=== PATIENT | female | born 1950 | race Caucasian/White ===

== ENCOUNTER 2018-06-27 14:12 | Emergency (ER) | payer MEDICARE, OTHER ==
--- OUTSIDE RECORDS SUMMARY | 2018-06-27 14:48 | XMS REPORT ---
:1950 External Reference #:[id number] Author Organization [employer] Address [address] [place] [address] [place] [address] Phone [phone] Care Team Providers Name Role Phone Judd Hickey DC Care Team Information Linux Solaris Administrator Unavailable Nicolle Mccarty MD Primary Care Physician Unavailable Payers Type Date Identification Numbers Payment Provider Subscriber Medicare Primary Effective: Policy Number: Medicare Juliana Shepherd 2014 [id number] PayID: [id number] [address] [place] [address] Commercial Policy Number: [id number] [facility] Juliana Shepherd Group Number: [id number] [address] PayID: [id number] [place] [address] Medigap Part B Effective: 2014 Policy Number: BS Facets Jean Shepherd [id number] III Expires: 2018 PayID: [id number] [address] [address] [place] [address] Problems Date Description Provider Status Onset: 11/26/2010 Obstructive sleep apnea syndrome Estee Alvarenga DNP, RN, Active [employer] [employer] Onset: 03/23/2017 Localized, primary osteoarthritis Mirna Felix M.D. Active Family History Date Family Member(s) Problem(s) Comments General Cancer Social History Type Date Description Comments Lives With Occupation Retired ETOH Use Occasionally consumes alcohol Smoking Patient has never smoked Exercise Type/Frequency Exercises regularly Allergies, Adverse Reactions, Alerts Date Description Reaction Status Severity Comments 08/14/2014 NKDA active Medications Medication Date Status Form Strength Qnty SIG Indications Ordering Provider Metoprolol / Active 50mg one by Unknown Succinate ER 0000 mouth daily Chlorthalidone / Active 25mg one by Unknown 0000 mouth daily Vesicare / Active 10mg one by Unknown 0000 mouth daily Atorvastatin / Active 20mg one by Unknown Calcium 0000 mouth daily Losartan / Active 100mg one by Unknown Potassium 0000 mouth daily Nasonex / Active 50mcg as needed Unknown 0000 Proctosol HC / Active 2.5% as needed Unknown 0000 [place] 3 500 / Active Capsules 500mg Unknown 0000 Vitamin D / Active Tablets 1000Unit by mouth Unknown 0000 everyday Biotin / Active take one Unknown 0000 capsule/ta blet daily by mouth Potassium / Active Tablets 75mg 1 by mouth Unknown 0000 every day Medications Administered in Office Medication Date Status Form Strength Qnty SIG Indications Ordering Provider Depomedrol Administered Injection Mirna 40MG 017 Doreen Felix Technetium TC Administered Injection Ica Nuclear 99M 017 Schedule Tetrofosmin, Per Unit Dose Up To 40 Millicuries Inj, Administered Injection Terrence Stearns Regadenoson, 017 Puente, 0.1 MG M.D., FACC, FASNC Technetium TC Administered Injection Terrence Stearns 99M 017 Puente, Tetrofosmin, MMarciaDMarcia, FACC, Per Unit Dose FASNC Up To 40 Millicuries Vital Signs Date Vital Result Comment 06/27/2018 Height 66 inches 5'6" Weight 252.00 lb Heart Rate 60 /min BP Systolic Sitting 138 mmHg BP Diastolic Sitting 82 mmHg Respiratory Rate 14 /min O2 % BldC Oximetry 97 % BMI (Body Mass Index) 40.7 kg/m2 05/14/2017 Height 66 inches 5'6" Weight 256.00 lb Heart Rate 70 /min BP Systolic Sitting 138 mmHg BP Diastolic Sitting 74 mmHg Respiratory Rate 28 /min O2 % BldC Oximetry 96 % room air BMI (Body Mass Index) 41.3 kg/m2 04/09/2017 Height 66 inches 5'6" Weight 255.00 lb Heart Rate 76 /min BP Systolic 154 mmHg BP Diastolic 71 mmHg Pain Level 2 BMI (Body Mass Index) 41.2 kg/m2 03/23/2017 Height 66 inches 5'6" Weight 255.00 lb Heart Rate 90 /min BP Systolic 170 mmHg BP Diastolic 80 mmHg Body Temperature 97.3 F BMI (Body Mass Index) 41.2 kg/m2 05/12/2016 Height 66 inches 5'6" Weight 245.00 lb Heart Rate 82 /min BP Systolic 148 mmHg BP Diastolic 70 mmHg Respiratory Rate 14 /min O2 % BldC Oximetry 96 % BMI (Body Mass Index) 39.5 kg/m2 10/06/2014 Height 66 inches 5'6" Weight 260.00 lb Heart Rate 77 /min BP Systolic Sitting 140 mmHg BP Diastolic Sitting 66 mmHg Respiratory Rate 18 /min O2 % BldC Oximetry 97 % BMI (Body Mass Index) 42.0 kg/m2 08/14/2014 Height 66 inches 5'6" Weight 252.00 lb Heart Rate 78 /min BP Systolic 164 mmHg BP Diastolic 98 mmHg BMI (Body Mass Index) 40.7 kg/m2 Results Test Date Test Result H/L Range Note Laboratory test finding 07/26/2017 Cytology Non-Licensed Weigher SEE RESULT BELOW 1 1 SEE RESULT BELOW Name: JULIANA SHEPHERD : [address]: Tank Smalls MD Acct: [id number] Unit: [id number] AGE: 67 Location: THYROID Re07/26/17 SEX: F Status: REG REF SPEC: [id number] JACKIE: 07/26/17-[address]: Tank Smalls MD REQ: [id number] RECD: 07/26/17 STATUS: NNAMDI MCGILL DR: Nicolle Nichols MD _ ORDERED: FNA-IMG GUID BX, CYTO ADEQ-1ST P FINAL DIAGNOSIS Thyroid, left lower, Ultrasound guided, fine needle aspiration: --Benign thyroid nodule- involutional type ([place] Class II). The specimen demonstrates moderate watery proteinaceous fluid, a moderate amount of benign appearing follicular epithelium arranged in uniform sheets, medium sized follicles and only occasional small groups. Abundant pigmented and non-pigmented macrophages are seen in the background. No features of papillary carcinoma are seen. In this clinical setting the risk of malignancy is less than 3%. Clinical management of this thyroid nodule should be based on clinical and radiographic features as well as the above findings. THYROID LEFT - US GUIDED FINE NEEDLE ASPIRATION LEFT LOWER THYROID NODULE CLINICAL HISTORY Left lower thyroid nodule 5.3 x 3.9 x 4.4cm IMMEDIATE INTERPRETATION Pass 1-adequate CONTINUED ON NEXT PAGE * ML=Testing performed at Main Lab DEPARTMENT OF PATHOLOGY, [address] [place] [address] Dash De Jesus M.D. Director [facility] # [id number] RUN DATE: 07/26/17 [facility] LAB LIVE PAGE 2 Patient: JULIANA SHEPHERD [id number] (Continued) GROSS DESCRIPTION (Continued) GROSS DESCRIPTION 2- alcohol fixed slide(s) 1- passes Signed (signature on file) Dash De Jesus MD 1106 END OF REPORT * ML=Testing performed at Main Lab DEPARTMENT OF PATHOLOGY, [address] [place] [address] Dash De Jesus M.D. Director [facility] # [id number] Procedures Date CPT Code Description Status 04/09/2017 27805 Inject/Drain Joint/Bursa Major W/O US Completed 04/06/2017 39469 Stress Test Completed 04/06/2017 96415 Myocardial Perfusion Imaging Tomographic (Spect) Completed Multiple Studies Encounters Type Date Location Provider CPT E/M Dx Office Visit 05/14/2017 [facility]ology [facility] Estee Alvarenga, 66124 G47.33 9:30a [facility] NAV[facility]O RN[facility] 03/23/2017 [facility] Mirna Felix M.D. 21413 M25.462 10:00a C.M.A. M25.562 M17.12 Office Visit 05/12/2016 11:15a [facility]ology [facility] Sleep Estee Alvarenga, 14455 G47.33 [facility] YOEL NAVARRO, [facility] Office Visit 10/06/2014 3:00p Pulmonology And Sleep Estee Alvarenga, 48487 327.23 [facility] YOEL NAVARRO, [facility] 08/14/2014 10:00a [facility] [place] [facility] 79121 715.36 C.M.A. MRavin Plan of Care 06/27/2018 - Estee Alvarenga DNP, RN, [facility]-BCG47.33 Obstructive sleep apnea ( adult) (pediatric)New Orders:Sleep-HomecareComments:Sleep Apnea - 9/23/11 NPSG AHI 76.7, jimenez oxygen 74%On CPAP 10 cm AHI 0.3/hourFollow up:1 yearRecommendations:Continue PAP device, Benefitting and compliant with treatment. Cleaning Wipe off mask daily (baby wipe-no scent, or warm water) Clean mask, tubing, filter, and water chamber weekly in mild no scent dish soap and water. Hang to dry. So-Clean is an option (not covered by insurance) If you have any sleepiness while driving you MUST avoid operating a vehicle or machinery. If you have difficulty with your equipment, or need to replace your mask or hoses, please contact your homecare agency. A weight change of 20 pounds or more may have an effect on your equipment; if you are experiencing problems please call for an appointment. If you have any further questions, please call the [facility] at [phone].r00.4 Other abnormalities of heart beatRecommendations:New finding, irregular beat every 6-7 beats. Agree to be seen in Emergency Room for further evaluation and lab work if needed. Educatioon about causes of irregular heart beat: dehydration, caffeine, electrolyte imbalances, and other problems that can be detected with lab work.
--- NOTE | 2018-06-27 15:24 | ED ---
Palpitations / Dysrhythmia - HPI Summary HPI Summary: This is cecille Nelson documenting for attending Ollie Parker MD. This patient is a 68 year old F presenting to [facility] with a chief complaint of irregular heart rhythm since earlier today. Patient denies chest pain, palpitation, SOB or nausea, vomiting, and diarrhea. Patient was at a routine appointment to evaluate for a CPAP when the irregular heart rhythm was found. Her PCP is Dr. Nicolle Mccarty MD. - History of Current Complaint Chief Complaint: EDDysrhythmPalp Time Seen by Provider: 06/27/18 14:42 Hx Obtained From: Patient Onset/Duration: Lasting Hours - Since earlier today Character: Irregular - Allergy/Home Medications Allergies/Adverse Reactions: Allergies Allergy/AdvReac Type Severity Reaction Status Date / Time No Known Allergies Allergy Verified 06/04/15 08:25 Home Medications: Home Medications Ascorbic Acid TAB* [Vitamin C TAB*] 1,000 mg PO DAILY 06/27/18 [History Confirmed 06/27/18] Biotin 5 mg PO DAILY 06/27/18 [History Confirmed 06/27/18] Chlorthalidone TAB* [Hygroton TAB*] 25 mg PO DAILY 06/27/18 [History Confirmed 06/27/18] Cholecalciferol TAB* [Vitamin D TAB*] 1,000 unit PO DAILY 06/27/18 [History Confirmed 06/27/18] Cinnamon Bark [Cinnamon] 900 mg PO DAILY 06/27/18 [History Confirmed 06/27/18] Fish Oil/Borage/Flax/Om3,6,9 1 [[place] 3-6-9 Complex Softgel] 750 mg PO DAILY 01/13 [History Confirmed 06/27/18] Garlic [Odor Free Garlic] 1 tab PO DAILY 06/27/18 [History Confirmed 06/27/18] Hydrocortisone [Proctozone-Hc] 2.5 % TOPICAL DAILY 06/27/18 [History Confirmed 06/27/18] Losartan TAB* [Cozaar TAB*] 100 mg PO DAILY 06/27/18 [History Confirmed 06/27/18 ] Metoprolol Succinate XL TAB* [Toprol XL TAB*] 50 mg PO DAILY 06/27/18 [History Confirmed 06/27/18] Mometasone NASAL (NF) [Nasonex (NF)] 1 spray BOTH NARES DAILY 06/27/18 [History Confirmed 06/27/18] Multivitamins/Minerals TAB* [Theragran/minerals TAB*] 1 tab PO DAILY 06/27/18 [ History Confirmed 06/27/18] Potassium 99 mg PO DAILY 06/27/18 [History Confirmed 06/27/18] Solifenacin(NF) [Vesicare(NF)] 10 mg PO DAILY 06/27/18 [History Confirmed ] Tumeric 800 mg PO DAILY 06/27/18 [History Confirmed 06/27/18] PMH/Surg Hx/FS Hx/Imm Hx Endocrine/Hematology History: Reports: Hx Thyroid Disease - PARTIAL THYROIDECTOMY, 1976 Denies: Hx Diabetes, Hx Anemia Cardiovascular History: Reports: Hx Hypertension - WELL CONTROLLED Denies: Other Cardiovascular Problems/Disorders Respiratory History: Reports: Hx Sleep Apnea GI History: Denies: Hx Jaundice Musculoskeletal History: Reports: Hx Arthritis - bilateral knees Denies: Other Musculoskeletal History Sensory History: Reports: Hx Contacts or Glasses - GLASSES Denies: Hx Hearing Aid Opthamlomology History: Reports: Hx Contacts or Glasses - GLASSES - Cancer History Hx Chemotherapy: No Hx Radiation Therapy: No - Surgical History Surgery Procedure, Year, and Place: PARTIAL THYROIDECTOMY 1977 [facility]. 2008, 2014 [facility]. 2008, 2013 D[facility] Hx Anesthesia Reactions: No Infectious Disease History: No Infectious Disease History: Denies: Traveled Outside the [place] in Last 30 Days - Family History Known Family History: Positive: Hypertension Negative: Cardiac Disease, Diabetes - Social History Occupation: Retired Alcohol Use: Rare Alcohol Amount: 1-2 PER MONTH Substance Use Type: Reports: None Smoking Status (MU): Never Smoked Tobacco Have You Smoked in the Last Year: No Review of Systems Negative: Fever, Chills Negative: Erythema Negative: Sore Throat Positive: Other - Irregular rhythm. Negative: Palpitations, Chest Pain Negative: Shortness Of Breath, Cough Negative: Abdominal Pain, Vomiting, Diarrhea, Nausea Negative: dysuria, hematuria Negative: Rash Neurological: Other - Denies dizziness All Other Systems Reviewed And Are Negative: Yes Physical Exam - Summary Physical Exam Summary: General: Well appearing, no distress Cardiovascular: Skin is well perfused Pulmonary: No respiratory distress, no tachypnea Abdomen: Non-distended Skin: Warm, pink, dry Psych: Normal affect Neuro: A&Ox3 Triage Information Reviewed: Yes Vital Signs On Initial Exam: Initial Vitals Temp Pulse Resp BP Pulse Ox 97.3 F 83 20 166/78 97 06/27/18 14:23 06/27/18 14:23 06/27/18 14:23 06/27/18 14:23 06/27/18 14:23 Vital Signs Reviewed: Yes Diagnostics - Vital Signs Vital Signs Temp Pulse Resp BP Pulse Ox 06/27/18 14:59 95 06/27/18 14:54 80 28 166/93 94 06/27/18 14:24 71 95 06/27/18 14:23 97.3 F 83 20 166/78 97 - Laboratory Result Diagrams: 06/27/18 15:24 06/27/18 15:24 Lab Statement: Any lab studies that have been ordered have been reviewed, and results considered in the medical decision making process. - Radiology Chest X-Ray Radiology Interpretation Completed By: Radiologist - LIONINFLATION. NO ACTIVE CARDIOPULMONARY DISEASE. Physician has reviewed this report. - EKG No standard instances Cardiac Rate: NL - 80 BPM EKG Rhythm: Sinus Rhythm EKG Interpretation: no STEMI Course/Dx - Diagnoses Provider Diagnoses: PVC (premature ventricular contraction) Discharge - Sign-Out/Discharge Documenting (check all that apply): Patient Departure - DC - Discharge Plan Condition: Stable Disposition: HOME Patient Education Materials: Premature Ventricular Contractions (ED) Referrals: Nicolle Mccarty MD [Primary Care Provider] - (Follow up in 2-3 days) Additional Instructions: Follow up with your primary care physician in 2-3 days. RETURN TO THE EMERGENCY DEPARTMENT FOR CHANGING OR WORSENING SYMPTOMS.
[2018-06-27 15:32] LABS: ABS Basophils 0.1 10^3/ul (0-0.2); ABS Eosinophils 0.2 10^3/ul (0-0.6); ABS Lymphocytes 2.3 10^3/ul (1.0-4.8); ABS Monocytes 0.7 10^3/ul (0-0.8); ABS Neutrophils 5.4 10^3/ul (1.5-7.7); ABS Nucleated RBC 0 10^3/ul; Eosinophil % 1.8 % (0-6); Hematocrit 42 % (35-47); Hemoglobin 14.3 g/dl (12.0-16.0); Lymphocyte % 26.9 % (25-47); Mean Corpuscular HGB Conc 34 g/dl (31-36); Mean Corpuscular Hemoglobin 28 pg (27-31); Mean Corpuscular Volume 81 fL (80-97); Nucleated Red Blood Cells % 0; Platelet Count 197 10^3/ul (150-450); Red Blood Count 5.19 10^6/ul (4.00-5.40); Red Cell Distribution Width 15 % (10.5-15); White Blood Count 8.6 10^3/ul (3.5-10.8)
[2018-06-27 15:51] LABS: EGFR Non-African American 105.2 (>60)
--- NOTE | 2018-06-27 15:51 | RAD ---
HISTORY: ARRHYTHMIA COMPARISONS: April 15, 2012 VIEWS: 1: frontal portable view of the chest at 3:09 PM FINDINGS: LINES AND TUBES: None. CARDIOMEDIASTINAL SILHOUETTE: The cardiomediastinal silhouette is normal for portable technique. PLEURA: The costophrenic angles are sharp. No pleural abnormalities are noted. LUNG PARENCHYMA: There is hyperinflation. ABDOMEN: The upper abdomen is clear. There is no subphrenic gas. BONES AND SOFT TISSUES: No bone or soft tissue abnormalities are noted. IMPRESSION: HYPERINFLATION. NO ACTIVE CARDIOPULMONARY DISEASE.
[2018-06-27 16:19] VITALS: BP 163/84
== END 2018-06-27 16:18 | disposition home or self-care (01) ==
LOC: ED 14:12
DX: I49.3 Ventricular premature depolarization (principal); I10 Essential (primary) hypertension; E07.9 Disorder of thyroid, unspecified; Z79.899 Other long term (current) drug therapy
CPT/HCPCS: 36415; 71045; 80053; 83605; 84439; 84443; 84484; 85025; 93005; 99283

== ENCOUNTER 2018-10-31 07:13 | Day surgery (SDC) | payer MEDICARE, OTHER ==
[~2018-10-31 07:13] MED LIST: Buffered Lidocaine 0.9% SYRIN* 5 ML/SYR SYRINGE INTRADERM ONE
[2018-10-31] MEDS ORDERED: Lidocaine 2% PF * 5 ML VIAL ONE ×2 (08:00→08:49)
[2018-10-31] MEDS ORDERED: Propofol* 10 MG/ML 20 ML BTL ONE (08:00)
[2018-10-31] MEDS ORDERED: fentaNYL* 50 MCG/ML 2 ML VIAL (100 MCG VIAL) ONE (08:01)
[2018-10-31] MEDS ORDERED: Midazolam* 1 MG/ML 2 ML VIAL (2 MG) ONE (08:01)
[2018-10-31] MEDS ORDERED: Chloroprocaine 2%* 20 ML VIAL ONE (08:49)
[2018-10-31] MEDS ORDERED: Acetaminophen TAB* 325 MG PO PRN (10:04)
[2018-10-31] MEDS ORDERED: oxyCODONE TAB* 5 MG TAB PO PRN (10:04)
[2018-10-31] MEDS ORDERED: Naloxone* 0.4 MG/ML 1 ML VIAL IV PRN (10:04)
[2018-10-31] MEDS ORDERED: Ketorolac INJ* 30 MG/ML 1 ML VIAL IV PRN (10:04)
[2018-10-31] MEDS ORDERED: Ondansetron INJ* 2 MG/ML VIAL IV PRN (10:04)
[2018-10-31] MEDS ORDERED: fentaNYL* 50 MCG/ML 2 ML VIAL (100 MCG VIAL) IV PRN (10:04)
[2018-10-31] MEDS ORDERED: Ketorolac INJ* 30 MG/ML 1 ML VIAL ONE (12:20)
[2018-10-31] MEDS ORDERED: oxyCODONE TAB* 5 MG TAB ONE (12:59)
[2018-10-31 17:03] VITALS: BP 121/78
--- NOTE | 2018-10-31 23:21 | OP ---
DATE OF OPERATION: 10/31/18 - [facility] DATE OF : 48 SURGEON: Isaac Smith MD ANESTHESIA: Spinal. PRE-OP DIAGNOSIS: Postmenopausal bleeding. POST-OP DIAGNOSIS: Endometrial polyp. OPERATIVE PROCEDURE: D and C hysteroscopy and MyoSure. COMPLICATIONS: None. ESTIMATED BLOOD LOSS: Less than 50 cc. DEFICIT: 300 cc. FINDINGS: On exam under anesthesia, uterus was mid position. Cervix, vagina, and vulva appeared normal. On hysteroscopy, there was a large endometrial polyp taking up the majority of the uterine cavity. The rest of the endometrial cavity appeared normal. DESCRIPTION OF PROCEDURE: The patient identified, procedure identified as a D and C, hysteroscopy, MyoSure. The patient was taken to the operating room, prepped and draped in the usual fashion in dorsal lithotomy position under spinal anesthesia. Two single-tooth tenaculums were placed in the anterior lip of the cervix. Cervix was dilated up to a #26 Tommie dilator. First the diagnostic scope could only be placed and the polyp was visualized. With further dilation, the MyoSure scope was placed and using the MyoSure, the polyp was excised. After the procedure, a sharp curette was inserted, and sharp curettage was performed; then the MyoSure was used to take a little bit off the endometrium. At the end of the procedure, all instruments were removed from the vagina and good hemostasis was verified. The patient returned to the recovery room in stable condition. All sponge and instrument counts were correct. [id number]/[facility] #: [id number] MTDD
== END 2018-10-31 17:04 | disposition home or self-care (01) ==
LOC: OR 07:13
PROVIDERS: ATTEND Obstetrics & Gynecology
DX: N85.01 Benign endometrial hyperplasia (principal)
CPT/HCPCS: 88305; 88342; A9270-GY; J1885; J2250; J2400; J2704; J3010

== ENCOUNTER 2019-06-10 08:14 | Inpatient (IN) | payer MEDICARE, OTHER ==
--- NOTE | 2019-06-03 09:27 | HP ---
AMENDED REPORT NOW INCLUDES DESIGNATED COSIGNER HISTORY AND PHYSICAL: DATE OF ADMISSION/SURGERY: 06/10/19 DATE OF OFFICE VISIT: 06/02/19 SURGEON: Mirna Felix MD * (DICTATED BY ANTHONY JAMES) PROCEDURE: Left total knee arthroplasty. CHIEF COMPLAINT: Left knee pain. HISTORY OF PRESENT ILLNESS: Ms. Shepherd is a 68-year-old female with end-stage osteoarthritis of the left knee. She has failed conservative treatment and elected to proceed with the left total knee arthroplasty. PAST MEDICAL HISTORY: Hypertension, high cholesterol, sleep apnea, hypothyroidism. PAST SURGICAL HISTORY: Vein stripping, hysterectomy, partial thyroidectomy, D and C, and sclerotherapy. CURRENT MEDICATIONS: 1. Tylenol as needed. 2. Amlodipine 10 mg daily. 3. Atorvastatin 20 mg daily. 4. Biotin 5 mg daily. 5. Chlorthalidone 25 mg daily. 6. Loratadine 10 mg daily. 7. Losartan 100 mg daily. 8. Metronidazole topical cream as needed. 9. Mometasone nasal spray at night. 10. Multivitamin daily. 11. Potassium daily. 12. Proctosol as needed. 13. Senna as needed. 14. Turmeric. 15. VESIcare. 16. CPAP machine. ALLERGIES: No known drug allergies. FAMILY HISTORY: Cancer and coronary artery disease. SOCIAL HISTORY: She is a 68-year-old female. She lives alone. She does not smoke or use drugs. She uses alcohol rarely. REVIEW OF SYSTEMS: A complete 14-point review of systems was reviewed with the patient. It was positive for hypothyroidism. She denies history of DVT, PE, hepatitis, HIV, or anesthesia problems. PHYSICAL EXAMINATION GENERAL: She is well developed, well nourished, in no acute distress. VITAL SIGNS: She stands 5 feet 6 inches tall, weighs 259 pounds. Her blood pressure is 118/64, heart rate is 80. HEENT: Normocephalic, atraumatic. NECK: Supple. No palpable lymph nodes. PULMONARY: Lungs are clear to auscultation bilaterally. CARDIO: Regular rate and rhythm. Strong S1, S2. ABDOMEN: Soft, nontender, and nondistended. NEUROLOGICAL: She is alert and oriented x3. MUSCULOSKELETAL: Left lower extremity: The skin is intact. There are no open wounds or abrasions. There is a moderate to large effusion of the left knee. There is a varus deformity. Range of motion is 10 to 120 degrees of flexion. Positive Apley's. Positive Sedrick's. Significant patellofemoral crepitus with range of motion. She is able to dorsiflex and plantar flex and has a 2+ dorsalis pedis pulse. ASSESSMENT AND PLAN: Ms. Shepherd is a 68-year-old female with end-stage osteoarthritis of the left knee. She has failed conservative treatment and elected to proceed with a left total knee arthroplasty. The surgery is scheduled for 06/10/[address] Felix discussed the risks and benefits of the surgery at today's visit and all of her questions were answered. She will follow up with Dr. Felix 2 weeks after the surgery. ANTHONY JAMES [id number]/[facility] #: [id number] MY
[~2019-06-10 08:14] MED LIST changes: +Acetaminophen TAB* 325 MG PO ONE; -Buffered Lidocaine 0.9% SYRIN* 5 ML/SYR SYRINGE INTRADERM ONE; +Buffered Lidocaine 1% SYRIN* 1 ML/SYRINGE INTRADERM ONE; +Dexamethasone TAB* 4 MG PO ONE; +DiMENhydriNATE IV* 50 MG/ML VIAL IV PUSH PRN; +Famotidine IV* 10 MG/ML 2 ML (20 mg) IV ONE; +Gabapentin CAP(*) 300 MG PO ONE; +HYDROmorphone INJ1* 1 MG/ML SYRINGE IV PRN; +Lactated Ringers 1000 ML Bag* 1,000 ML IV SCH; +Naloxone* 0.4 MG/ML 1 ML VIAL IV PRN; +Ondansetron ODT TAB* 4 MG PO ONE; +PROCHLORPERAZINE INJ 5 MG/ML 2 ML VIAL IV PRN; +Scopolamine 1.5 mg* PATCH TRANSDERM PRN; +Tranexamic Acid 1,000 MG in NS 0.9% 50 ML* (outpatient use) IV SCH; +celeCOXIB CAP* 200 MG PO ONE; +fentaNYL* 50 MCG/ML 2 ML VIAL (100 MCG VIAL) IV PRN; +oxyCODONE TAB* 5 MG TAB PO PRN
--- OUTSIDE RECORDS SUMMARY | 2019-06-10 08:18 | XMS REPORT | Continuity of Care Document ---
:1950 External Reference #:[id number] Author Name Rosalie Spencer Care Team Providers Name Role Phone Nicolle Mccarty MD Primary Care Physician Unavailable Payers Date Identification Numbers Payment Provider Subscriber Effective: 2014 Policy Number: [id number] Medicare Juliana Ivey PayID: [id number] [address] [place] [address] Policy Number: [id number] [facility] Juliana Ivey Group Number: [id number] [address] PayID: [id number] [place] [address] Effective: 2014 Policy Number: [id number] [employer] Jean Wharton Joao III Expires: 2018 PayID: [id number] [address] [address] [place] [address] Problems Active Problems Provider Date Obstructive sleep apnea syndrome Estee Alvarenga DNP, RN, METALLURGICAL OR MATERIALS TECHNICIAN-BC Onset: 11/2010 Localized, primary osteoarthritis Mirna Felix M.D. Onset: 03/23/2017 Heart sounds abnormal Estee Alvarenga DNP, RN, METALLURGICAL OR MATERIALS TECHNICIAN-BC Onset: 06/27/2018 Family History Date Family Member(s) Observation Comments General Cancer General Hypertension Onset: (age Father Lung Cancer HEAVY SMOKER 72 Years) ASTHMA ALLERGIES ECZEMA Mother Hypertension CAD MOTHER AGE 93 CHF Onset: (age Mother Congestive Heart Failure (CHF) 93 Years) Onset: (age Mother Thyroid Disease THYROID CANCER 84 Years) Mother Hypercholesterolemia HYPERLIPIDEMIA Siblings 1 Sister - congenital heart defect hole in heart Social History Type Date Description Comments Sex Unknown Marital Status Lives With Alone Occupation Retired ETOH Use Occasionally consumes 1 glass of good red alcohol wine Tobacco Use Start: Unknown Patient has never smoked Recreational Drug Use Denies Drug Use Smoking Status Reviewed: 06/02/19 Patient has never smoked Exercise Type/Frequency Exercises regularly physical therapy desk stationary bike goes to [employer] Allergies, Adverse Reactions, Alerts Description No Known Drug Allergies Medications Active Medications SIG Qnty Indications Ordering Date Provider Amlodipine Besylate 1 by mouth every 90tabs I10 Sergio Lyon, 2018 10mg day DO FACC Tablets Multivital Unknown Tumeric 99 mg 1 tab po Unknown qd Loratadine once a day for Unknown 10mg Capsules allergies as needed Acetaminophen 2 every 6 hours Unknown 500mg as needed Tablets Mometasone Furoate spray two sprays Unknown in each nostril 50mcg/Act Suspension twice daily Metrocream apply twice a day Unknown 0.75% Cream - thin film as needed Senna S take 2 t d at hs Unknown 8.6-50mg Tablets Cpap for use while Unknown Device sleeping 10 cm Atorvastatin Calcium Take 1 Tablet By Unknown 20mg Mouth Every Day Tablets Potassium 1 by mouth every Unknown 75mg Tablets day Biotin take one Unknown 5mg Capsules capsule/tablet daily at lunch Proctosol HC as needed Unknown 2.5% Losartan Potassium one by mouth Unknown 100mg daily Vesicare one by mouth Unknown 10mg daily Chlorthalidone one by mouth Unknown 25mg daily History Medications Metoprolol Succinate 1 by mouth every day 7tabs Sergio Young 05/21/2019 - ER Camron DO FACC 05/28/2019 25mg Tablets ER 24HR Amlodipine Besylate 1 by mouth every day 30tabs I10 Sergio Young 05/21/2019 - 5mg Camron DO FACC 05/28/2019 Tablets Cephalexin 1 tablet every 8 30caps Mirna Felix, 11/01/2018 - 500mg hours x 10 days M.D. 05/15/2019 Capsules Metoprolol Succinate one by mouth daily Unknown - ER 05/21/2019 50mg Atorvastatin Calcium one by mouth daily Unknown - 05/15/2019 20mg Nasonex as needed Unknown - 50mcg 05/15/2019 [place] 3 500 i Unknown - 500mg 05/15/2019 Capsules Vitamin D by mouth everyday Unknown - 1000Unit 05/20/2019 Tablets Ec-81 Aspirin take 1 t po d last Unknown - 81mg took in dec because 05/27/2019 Tablets of hysterectomy never told to resume Vitamin K tk 3 t d Unknown - (Phytonadione) 05/15/2019 100mcg Tablets Medications Administered in Office Medication SIG Qnty Indications Ordering Provider Date Technetium TC 99M Ica Nuclear Schedule 05/26/2019 Tetrofosmin, Per Unit Dose Up To 40 Millicuries Injection Inj, Regadenoson, 0.1 MG Sergio Lyon, DO FAC 05/22/2019 Injection Technetium TC 99M Sergio Lyon, DO FACC 05/22/2019 Tetrofosmin, Per Unit Dose Up To 40 Millicuries Injection Depomedrol 40MG Mirna Felix M.D. 11/01/2018 Injection Depomedrol 40MG Mirna Felix M.D. 04/09/2017 Injection Technetium TC 99M Ica Nuclear Schedule 04/09/2017 Tetrofosmin, Per Unit Dose Up To 40 Millicuries Injection Inj, Regadenoson, 0.1 MG Terrence Puente M.D., 04/06/2017 Injection MELBA DUNN Technetium TC 99M Terrence Puente M.D., 04/06/2017 Tetrofosmin, Per Unit Dose MELBA DUNN Up To 40 Millicuries Injection Vital Signs Date Vital Result Comment 06/02/2019 9:39am Height 66 inches 5'6" Weight 259.00 lb Heart Rate 80 /min BP Systolic 118 mmHg BP Diastolic 64 mmHg BMI (Body Mass Index) 41.8 kg/m2 05/28/2019 7:47am Height 66 inches 5'6" Weight 258.00 lb with sandals Heart Rate 81 /min BP Systolic Sitting 150 mmHg lue large cuff BP Diastolic Sitting 74 mmHg lue large cuff BP Systolic Standing 152 mmHg lue large cuff BP Diastolic Standing 76 mmHg lue large cuff Respiratory Rate 14 /min BMI (Body Mass Index) 41.6 kg/m2 Ejection Fraction 60-65% echo. 05/27/19 05/21/2019 8:24am Height 66 inches 5'6" Weight 257.00 lb CLothes/shoes Heart Rate 82 /min Radial BP Systolic Sitting 162 mmHg Rue Lg cuff BP Diastolic Sitting 90 mmHg Rue Lg cuff BP Systolic Standing 158 mmHg Lue Lg cuff BP Diastolic Standing 90 mmHg Lue Lg cuff BMI (Body Mass Index) 41.5 kg/m2 02/19/2019 10:11am Height 66 inches 5'6" Weight 260.00 lb Heart Rate 81 /min O2 % BldC Oximetry 97 % BMI (Body Mass Index) 42.0 kg/m2 11/01/2018 2:28pm Height 66 inches 5'6" Weight 252.00 lb BP Systolic 126 mmHg BP Diastolic 71 mmHg Respiratory Rate 16 /min Pain Level 2 BMI (Body Mass Index) 40.7 kg/m2 06/27/2018 1:09pm Height 66 inches 5'6" Weight 252.00 lb Heart Rate 60 /min BP Systolic Sitting 138 mmHg BP Diastolic Sitting 82 mmHg Respiratory Rate 14 /min O2 % BldC Oximetry 97 % BMI (Body Mass Index) 40.7 kg/m2 05/14/2017 9:44am Height 66 inches 5'6" Weight 256.00 lb Heart Rate 70 /min BP Systolic Sitting 138 mmHg BP Diastolic Sitting 74 mmHg Respiratory Rate 28 /min O2 % BldC Oximetry 96 % room air BMI (Body Mass Index) 41.3 kg/m2 04/09/2017 10:42am Height 66 inches 5'6" Weight 255.00 lb Heart Rate 76 /min BP Systolic 154 mmHg BP Diastolic 71 mmHg Pain Level 2 BMI (Body Mass Index) 41.2 kg/m2 03/23/2017 10:15am Height 66 inches 5'6" Weight 255.00 lb Heart Rate 90 /min BP Systolic 170 mmHg BP Diastolic 80 mmHg Body Temperature 97.3 F BMI (Body Mass Index) 41.2 kg/m2 05/12/2016 11:38am Height 66 inches 5'6" Weight 245.00 lb Heart Rate 82 /min BP Systolic 148 mmHg BP Diastolic 70 mmHg Respiratory Rate 14 /min O2 % BldC Oximetry 96 % BMI (Body Mass Index) 39.5 kg/m2 10/06/2014 3:13pm Height 66 inches 5'6" Weight 260.00 lb Heart Rate 77 /min BP Systolic Sitting 140 mmHg BP Diastolic Sitting 66 mmHg Respiratory Rate 18 /min O2 % BldC Oximetry 97 % BMI (Body Mass Index) 42.0 kg/m2 08/14/2014 10:38am Height 66 inches 5'6" Weight 252.00 lb Heart Rate 78 /min BP Systolic 164 mmHg BP Diastolic 98 mmHg BMI (Body Mass Index) 40.7 kg/m2 Results Test Date Facility Test Result H/L Range Note Laboratory test 05/27/2019 [facility] Potassium TNP mmol/L 3.5-5.[address] [place] [address] [phone] Magnesium TNP mg/dL 1.9-2.7 2 Basic Metabolic Panel 05/27/2019 [facility] Sodium 137 mmol/L N 135-[address] [place] [address] [phone] Chloride 101 mmol/L N 101-111 Co2 Carbon Dioxide 29 mmol/L N 22-32 Glucose 119 mg/dL High 70-100 3 Blood Urea Nitrogen 13 mg/dL N 6-24 4 Creatinine 0.39 mg/dL Low 0.51-0.95 5 BUN/Creatinine Ratio 33.3 High 8-20 Calcium 9.9 mg/dL N 8.6-10.3 6 Egfr Non- 163.0 >60 Egfr 197.2 >60 7 Potassium TNP mmol/L 3.5-5.0 8 Anion Gap 7 mmol/L N 2-11 Laboratory test 05/27/2019 [facility] Magnesium TNP mg/dL 1.9 -2.[address] [place] [address] [phone] B-Type Natriuretic Peptide BNP 16 pg/mL <=100 Laboratory test 05/21/2019 [facility] B-Type Natriuretic < pending> finding [address] [place] [address] [phone] Potassium <pending> Magnesium <pending> Laboratory test 07/26/2017 [facility] Cytology SEE RESULT [address] [place] [address] [phone] 1 Specimen Hemolyzed. Result may not be valid. Unable to report test result due to hemolysis. 2 Unable to report test result due to hemolysis. 3 Specimen hemolyzed. Result may not be valid. 4 Specimen hemolyzed. Result may not be valid. 5 Specimen hemolyzed. Result may not be valid. 6 Specimen hemolyzed. Result may not be valid. 7 Because ethnic data is not always readily available, this report includes an eGFR for both -Americans and non- Americans. The National Kidney Disease Education Program (NKDEP) does not endorse the use of the MDRD equation for patients that are not between the ages of 18 and 70, are , have extremes of body size, muscle mass, or nutritional status, or are non- or non-. According to the National Kidney Foundation, irrespective of diagnosis, the stage of the disease is based on the level of kidney function: Stage Description GFR(mL/min/1.73 m(2)) 1 Kidney damage with normal or decreased GFR 90 2 Kidney damage with mild decrease in GFR 60-89 3 Moderate decrease in GFR 30-59 4 Severe decrease in GFR 15-29 5 Kidney failure <15 (or dialysis) 8 Specimen Hemolyzed. Result may not be valid. Unable to report test result due to hemolysis. 9 Unable to report test result due to hemolysis. 10 SEE RESULT BELOW Name: JULIANA IVEY : [address]: Tank Smalls MD Acct: [id number] Unit: [id number] AGE: 67 Location: THYROID Re07/26/17 SEX: F Status: REG REF SPEC: [id number] JACKIE: 07/26/17-[address] [facility] [address]: Tank Smalls MD REQ: [id number] RECD: 07/26/17-1100 STATUS: NNAMDI MCGILL DR: Nicolle Nichols MD _ ORDERED: FNA-IMG GUID BX, CYTO ADEQ-1ST P FINAL DIAGNOSIS Thyroid, left lower, Ultrasound guided, fine needle aspiration: --Benign thyroid nodule- involutional type ([place] Class II). The specimen demonstrates moderate watery [...] performed at Main Lab DEPARTMENT OF PATHOLOGY, [address] [place] [address] Dash De Jesus M.D. Director [facility] # [id number] RUN DATE: 07/26/17 [facility] LAB LIVE PAGE 2 Patient: JULIANA IVEY [id number] (Continued) GROSS DESCRIPTION (Continued) GROSS DESCRIPTION 2- alcohol fixed slide(s) 1- passes Signed (signature on file) Dash De Jesus MD 1106 END OF REPORT * ML=Testing performed at Main Lab DEPARTMENT OF PATHOLOGY, [address] [place] [address] Dash De Jesus M.D. Director [facility] # [id number] Procedures Date Code Description Status 05/28/2019 34318 EKG Tracing & Interpretation Completed 05/27/2019 27772 ECHO Transthorasic Realtime 2D W Doppler & Color Flow Hosp Completed 05/22/2019 55689 Myocardial Perfusion Imaging Tomographic (Spect) Multiple Completed Studies 05/21/2019 68511 EKG Tracing & Interpretation Completed 11/01/2018 76402 Inject/Drain Joint/Bursa Major W/O US Completed 04/09/2017 59842 Inject/Drain Joint/Bursa Major W/O US Completed 04/06/2017 72188 Stress Test Completed 04/06/2017 22522 Myocardial Perfusion Imaging Tomographic (Spect) Multiple Completed Studies Encounters Type Date Location Provider Dx Diagnosis Office Visit 05/28/2019 [facility] Sergio Lyon, I10 Essential ( primary) 8:00a Of Circulation Manager DO FACC hypertension I44.7 Left bundle-branch block, unspecified Z01.810 Encounter for preprocedural cardiovascular examination G47.33 Obstructive sleep apnea (adult) (pediatric) I11.9 Hypertensive heart disease without heart failure Office Visit 05/21/2019 Alexandre Young Z01.810 Encounter for 8:45a Cardiology Of DO Camron preprocedural [facility] cardiovascular examination M22.92 Unspecified disorder of patella, left knee I44.7 Left bundle-branch block, unspecified R06.02 Shortness of breath E87.6 Hypokalemia E83.42 Hypomagnesemia I10 Essential (primary) hypertension Z68.41 Body mass index (BMI) 40.0-44.9, adult E66.8 Other obesity G47.33 Obstructive sleep apnea (adult) (pediatric) R94.31 Abnormal electrocardiogram [ECG] [EKG] Office Visit 02/19/2019 9:45a [facility] Mirna Felix, M25.562 Pain in left Of C.[facility]. M.D. knee M25.462 Effusion, left knee M17.12 Unilateral primary osteoarthritis, left knee Office Visit 11/01/2018 2:15p [facility] Mirna Felix, M25.562 Pain in left Of C.M.A. M.D. knee M25.462 Effusion, left knee M17.12 Unilateral primary osteoarthritis, left knee Office Visit 06/27/2018 [facility] Estee G47.33 Obstructive sleep 1:15p Sleep Services Of MELANIE Alvarenga RN, apnea (adult) [facility] JASON-ERMELINDA (pediatric) R00.8 Other abnormalities of heart beat Office Visit 05/14/2017 [facility] Estee G47.33 Obstructive sleep 9:30a Sleep Services Of MELANIE Alvarenga RN, apnea (adult) [facility] JASON-ERMELINDA (pediatric) Office Visit 03/23/2017 Orthopedic Mirna Felix, M25.462 Effusion, left 10:00a Services Of M.D. knee C.[facility].A. M25.562 Pain in left knee M17.12 Unilateral primary osteoarthritis, left knee Office Visit 05/12/2016 [facility] Estee G47.33 Obstructive sleep 11:15a Sleep Services Of MELANIE Alvarenga apnea (adult) Circulation Manager DOMI DIALLO (pediatric) Office Visit 10/06/2014 [facility] Estee 327.23 Obstructive Sleep 3:00p Sleep Services Of MELANIE Alvarenga, Apnea Adult & Circulation Manager RN, METALLURGICAL OR MATERIALS TECHNICIAN- Pediatric Office Visit 08/14/2014 [facility] 715.36 Osteoarthrosis 10:00a Services Of Doreen Langd Not Spec C.[facility].A. Prime Or 2Ndy Lower Leg Plan of Treatment Future Appointment(s):06/23/2019 10:30 am - Mirna Felix M.D. at [facility]06/10/2019 11:30 am - Ciro Tomas PA-C at [facility]06/10/2019 11:30 am - BONY Simon at [facility]06/10/2019 11:30 am - ANTHONY De at [facility]05/06/2020 9:20 am - Jefferson Chandler MD at [facility] Jzgpagxhndn66/16/2019 11: 30 am - Mirna Felix M.D. at [facility]06/02/2019 - Mirna Felix M.D.M25.462 Effusion, left kneeFollow up:Follow up: 2 weeks after akiibfdG72.562 Pain in left kneeM17.12 Unilateral primary osteoarthritis, left knee
--- OUTSIDE RECORDS SUMMARY | 2019-06-10 08:18 | XMS REPORT | Continuity of Care Document ---
:1950 External Reference #:[id number] Author Name Johnna Taveras Care Team Providers Name Role Phone Judd Hickey DC Care Team Information Contact Lens Lathe Operator Unavailable Nicolle Mccarty MD Primary Care Physician Unavailable Payers Date Identification Numbers Payment Provider Subscriber Effective: 2014 Policy Number: [id number] Medicare Juliana Ivey PayID: [id number] [address] [place] [address] Policy Number: [id number] [facility] Juliana Ivey Group Number: [id number] [address] PayID: [id number] [place] [address] Effective: 2014 Policy Number: [id number] [facility] Jean Ivey III Expires: 2018 PayID: [id number] [address] [address] [place] [address] Problems Active Problems Provider Date Obstructive sleep apnea syndrome Estee Alvarenga DNP, RN, RESIDENTIAL REAL ESTATE SALES MANAGER-BC Onset: 11/2010 Localized, primary osteoarthritis Mirna Felix M.D. Onset: 03/23/2017 Heart sounds abnormal Estee Alvarenga DNP, RN, RESIDENTIAL REAL ESTATE SALES MANAGER-BC Onset: 06/27/2018 Family History Date Family Member(s) Observation Comments General Cancer Social History Type Date Description Comments Sex Unknown Lives With Occupation Retired ETOH Use Occasionally consumes alcohol Tobacco Use Start: Unknown Patient has never smoked Smoking Status Reviewed: 02/19/19 Patient has never smoked Exercise Type/Frequency Exercises regularly Allergies, Adverse Reactions, Alerts Description No Known Drug Allergies Medications Active Medications SIG Qnty Indications Ordering Date Provider Cephalexin 1 tablet every 8 30caps Mirna Felix, 11/01/2018 500mg Capsules hours x 10 days M.D. Metoprolol Succinate ER one by mouth Unknown daily 50mg Chlorthalidone one by mouth Unknown 25mg daily Vesicare one by mouth Unknown 10mg daily Atorvastatin Calcium one by mouth Unknown 20mg daily Losartan Potassium one by mouth Unknown 100mg daily Nasonex as needed Unknown 50mcg Proctosol HC as needed Unknown 2.5% [place] 3 500 Unknown 500mg Capsules Vitamin D by mouth Unknown 1000Unit Tablets everyday Biotin take one Unknown capsule/tablet daily by mouth Potassium 1 by mouth every Unknown 75mg Tablets day Atorvastatin Calcium Take 1 Tablet By Unknown 20mg Mouth Every Day Tablets Medications Administered in Office Medication SIG Qnty Indications Ordering Provider Date Depomedrol 40MG Mirna Felix M.D. 11/01/2018 Injection Depomedrol 40MG Mirna Felix M.D. 04/09/2017 Injection Technetium TC 99M Ica Nuclear Schedule 04/09/2017 Tetrofosmin, Per Unit Dose Up To 40 Millicuries Injection Inj, Regadenoson, 0.1 MG Terrence Puente M.D., 04/06/2017 Injection FACC, FASNC Technetium TC 99M Terrence Puente M.D., 04/06/2017 Tetrofosmin, Per Unit Dose FACC, FASNC Up To 40 Millicuries Injection Vital Signs Date Vital Result Comment 02/19/2019 10:11am Height 66 inches 5'6" Weight [...] Test Result H/L Range Note Laboratory test 07/26/2017 [facility] Cytology SEE RESULT [address] Non-Aircraft Maintenance Engineer BELOW [place] [id number] [phone] 1 SEE RESULT BELOW Name: JULIANA IVEY : [address]: Tank Smalls MD Acct: [id number] Unit: [id number] AGE: 67 Location: THYROID Re07/26/17 SEX: F Status: REG REF SPEC: [id number] JACKIE: 07/26/17-[address]: Tank Smalls MD REQ: [id number] RECD: 07/26/17-1099 STATUS: NNAMDI MCGILL DR: Nicolle Nichols MD _ ORDERED: FNA-IMG GUID BX, CYTO ADEQ-1ST P FINAL DIAGNOSIS Thyroid, left lower, Ultrasound guided, fine needle aspiration: --Benign thyroid nodule- involutional type ([place] Class II). The specimen demonstrates moderate watery [...] performed at Main Lab DEPARTMENT OF PATHOLOGY, [address] [place] [address] Dash De Jesus M.D. Director STEFANIE # [id number] RUN DATE: 07/26/17 [facility] LAB LIVE PAGE 2 Patient: JULIANA IVEY [id number] (Continued) GROSS DESCRIPTION (Continued) GROSS DESCRIPTION 2- alcohol fixed slide(s) 1- passes Signed (signature on file) Dash De Jesus MD 1106 END OF REPORT * ML=Testing performed at Main Lab DEPARTMENT OF PATHOLOGY, [address] [place] [address] Dash De Jesus M.D. Director [facility] # [id number] Procedures Date Code Description Status 11/01/2018 Inject/Drain Joint/Bursa Major W/O US Completed 04/09/2017 Inject/Drain Joint/Bursa Major W/O US Completed 04/06/2017 47118 Stress Test Completed 04/06/2017 72331 Myocardial Perfusion Imaging Tomographic (Spect) Multiple Completed Studies Encounters Type Date Location Provider Dx Diagnosis Office Visit 02/19/2019 Orthopedic Mirna Felix, M25.562 Pain in left knee 9:45a Services Of C.M.Karie Logan M25.462 Effusion, left knee M17.12 Unilateral primary osteoarthritis, left knee Office Visit 11/01/2018 2:15p [facility] Mirna Felix, M25.562 Pain in left Of C.M.A. MMarciaD. knee M25.462 Effusion, left knee M17.12 Unilateral primary osteoarthritis, left knee Office Visit 06/27/2018 [facility] Estee G47.33 Obstructive sleep 1:15p Sleep Services Of MELANIE Alvarenga RN, apnea (adult) Lawrence GOMEZ-BC (pediatric) R00.8 Other abnormalities of heart beat Office Visit 05/14/2017 Pulmonology And Estee G47.33 Obstructive sleep 9:30a Sleep Services Of MELANIE Alvarenga RN, apnea (adult) Lawrence GOMEZ-BC (pediatric) Office Visit 03/23/2017 Orthopedic Mirna Felix, M25.462 Effusion, left 10:00a Services Of Doreen knee C.M.AMarcia M25.562 Pain in left knee M17.12 Unilateral primary osteoarthritis, left knee Office Visit 05/12/2016 Pulmonology And Estee G47.33 Obstructive sleep 11:15a Sleep Services Of MELANIE Alvarenga apnea (adult) JASON Bravo RN-ERMELINDA (pediatric) Office Visit 10/06/2014 Pulmonology And Estee 327.23 Obstructive Sleep 3:00p Sleep Services Of MELANIE Alvarenga Apnea Adult & Lawrence DIALLO, RESIDENTIAL REAL ESTATE SALES MANAGER-BC Pediatric Office Visit 08/14/2014 [facility] 715.36 Osteoarthrosis 10:00a Services Of Doreen Lang Not Spec [facility]. Prime Or 2Ndy Lower Leg Plan of Treatment Future Appointment(s):05/06/2020 9:20 am - Jefferson Chandler MD at [facility] Kfxxdregxvw02/08/2019 9:30 am - Mirna Felix M.D. at [facility]06/10/2019 9:30 am - Mirna Felix M.D. at [facility]02/19/2019 - Mirna Felix M.D.M25.562 Pain in left kneeFollow up:Follow up: 7-10 days before sstbwcrH14.462 Effusion, left kneeM17.12 Unilateral primary osteoarthritis, left knee
--- OUTSIDE RECORDS SUMMARY | 2019-06-10 08:18 | XMS REPORT | Continuity of Care Document ---
:1950 External Reference #:[id number] Author Name Veronica Spencer Care Team Providers Name Role Phone Judd Hickey DC Care Team Information Veneer Jointer Returner Unavailable Nicolle Mccarty MD Primary Care Physician Unavailable Payers Date Identification Numbers Payment Provider Subscriber Effective: 2014 Policy Number: [id number] Medicare Juliana Ivey PayID: [id number] [address] [place] [address] Policy Number: [id number] [facility] Juliana Ivey Group Number: [id number] [address] PayID: [id number] [place] [address] Effective: 2014 Policy Number: [id number] Facets Jean Ivey III Expires: 2018 PayID: [id number] [address] [address] [place] [address] Problems Active Problems Provider Date Obstructive sleep apnea syndrome Estee Alvarenga DNP, RN, [employer] Onset: 11/2010 Localized, primary osteoarthritis Mirna Felix M.D. Onset: 03/23/2017 Heart sounds abnormal Estee Alvarenga DNP, RN, [employer] Onset: 06/27/2018 Family History Date Family Member(s) [...] Use Denies Drug Use Smoking Status Reviewed: 05/21/19 Patient has never smoked Exercise Type/Frequency Exercises regularly physical therapy desk stationary bike goes to [employer] Allergies, Adverse Reactions, Alerts Description No Known Drug Allergies Medications Active Medications SIG Qnty Indications Ordering Date Provider Amlodipine Besylate 1 by mouth every 30tabs I10 Sergio Young 05/21/2019 5mg day Lyon, DO FACC Tablets Metoprolol Succinate 1 by mouth every 7tabs Esrgio S. 05/21/2019 ER day Lyon, DO FACC 25mg Tablets ER 24HR Tumeric 99 mg 1 tab po qd Unknown Loratadine once a day for Unknown 10mg allergies as needed Capsules Acetaminophen 2 every 6 hours as Unknown 500mg needed Tablets Mometasone Furoate spray two sprays in Unknown each nostril twice 50mcg/Act Suspension daily Metrocream apply twice a day - Unknown 0.75% Cream thin film as needed Senna S take 2 t d at hs Unknown 8.6-50mg Tablets Cpap for use while Unknown Device sleeping 10 cm [id number]-81 Aspirin take 1 t po d last Unknown 81mg took in dec because Tablets DR of hysterectomy never told to resume Atorvastatin Calcium Take 1 Tablet By Unknown Mouth Every Day 20mg Tablets Potassium 1 by mouth every Unknown 75mg Tablets day Biotin take one Unknown 5mg Capsules capsule/tablet daily at lunch Proctosol HC as needed Unknown 2.5% Losartan Potassium one by mouth daily Unknown 100mg Vesicare one by mouth daily Unknown 10mg Chlorthalidone one by mouth daily Unknown 25mg History Medications Cephalexin 1 tablet every 8 30caps Mirna Felix, 11/01/2018 - 500mg Capsules hours x 10 days M.D. 05/15/2019 Metoprolol Succinate one by mouth daily Unknown - ER 05/21/2019 50mg Atorvastatin Calcium one by mouth daily Unknown - 20mg 05/15/2019 Nasonex as needed Unknown - 50mcg 05/15/2019 [place]ady 3 500 i Unknown - 500mg 05/15/2019 Capsules Vitamin D by mouth everyday Unknown - 1000Unit 05/20/2019 Tablets Vitamin K tk 3 t d Unknown [...] Injection Vital Signs Date Vital Result Comment 05/21/2019 8:24am Height 66 inches 5'6" Weight [...] Test Result H/L Range Note Laboratory test 05/21/2019 [facility] B-Type <pending> finding [address] [place] [address] Peptide BNP [phone] Potassium <pending> Magnesium <pending> Laboratory test 07/26/2017 [facility] Cytology SEE RESULT [address] [employer] Senior Officer [place], [place] [id number] [phone] 1 SEE RESULT BELOW Name: JULIANA IVEY : [address]: Tank Smalls MD Acct: [id number] Unit: [id number] AGE: 67 Location: THYROID Re07/26/17 SEX: F Status: REG REF SPEC: [id number] JACKIE: 07/26/17-[address]: Tank Smalls MD REQ: [id number] RECD: 07/26/17 STATUS: NNAMDI MCGILL DR: Nicolle Nichols MD _ ORDERED: FNA-IMG GUID BX, CYTO ADEQ-1ST P FINAL DIAGNOSIS Thyroid, left lower, Ultrasound guided, fine needle aspiration: --Benign thyroid nodule- involutional type ([place] Class II). The specimen demonstrates moderate watery [...] performed at Main Lab DEPARTMENT OF PATHOLOGY, [address] [place] [address] Dash De Jesus M.D. Director [facility] # [id number] RUN DATE: 07/26/17 [facility] LAB LIVE PAGE 2 Patient: JULIANA IVEY [id number] (Continued) GROSS DESCRIPTION (Continued) GROSS DESCRIPTION 2- alcohol fixed slide(s) 1- passes Signed (signature on file) Dash De Jesus MD [id number] END OF REPORT * ML=Testing performed at Main Lab DEPARTMENT OF PATHOLOGY, [address] [place] [address] Dash De Jesus M.D. Director [facility] # [id number] Procedures Date Code Description Status 05/21/2019 75970 EKG Tracing & Interpretation Completed 11/01/2018 Inject/Drain Joint/Bursa Major W/O US Completed 04/09/2017 Inject/Drain Joint/Bursa Major W/O US Completed 04/06/2017 57967 Stress Test Completed 04/06/2017 90608 Myocardial Perfusion Imaging Tomographic (Spect) Multiple Completed Studies Encounters Type Date Location Provider Dx Diagnosis Office Visit 02/19/2019 Orthopedic Mirna Felix, M25.562 Pain in left knee 9:45a Services Of C.M.Erick. Meagan. M25.462 Effusion, left knee M17.12 Unilateral primary osteoarthritis, left knee Office Visit 11/01/2018 2:15p Orthopedic Services Mirna Felix, M25.562 Pain in left Of C.M.A. M.D. knee M25.462 Effusion, left knee M17.12 Unilateral primary osteoarthritis, left knee Office Visit 06/27/2018 Pulmonology And Estee G47.33 Obstructive sleep 1:15p Sleep Services Of MELANIE Alvarenga RN, apnea (adult) Lawrence GOMEZ-ERMELINDA (pediatric) R00.8 Other abnormalities of heart beat Office Visit 05/14/2017 Pulmonology And Esete G47.33 Obstructive sleep 9:30a Sleep Services Of MELANIE Alvarenga RN, apnea (adult) Lawrence GOMEZ-ERMELINDA (pediatric) Office Visit 03/23/2017 Orthopedic Mirna Felix, M25.462 Effusion, left 10:00a Services Of Doreen knee C.M.AMarcia M25.562 Pain in left knee M17.12 Unilateral primary osteoarthritis, left knee Office Visit 05/12/2016 Pulmonology And Estee G47.33 Obstructive sleep 11:15a Sleep Services Of MELANIE Alvarenga apnea (adult) Lawrence RN, DEPUTY COUNTY CLERK-ERMELINDA (pediatric) Office Visit 10/06/2014 Pulmonology And Estee 327.23 Obstructive Sleep 3:00p Sleep Services Of MELANIE Alvarenga Apnea Adult & [employer] Teacher RN, [employer]PUTY COUNTY CLERK-BC Pediatric Office Visit 08/14/2014 Orthopedic Good 715.36 Osteoarthrosis 10:00a Services Of Doreen Lang Not Spec C.M.A. Prime Or 2Ndy Lower Leg Plan of Treatment Future Appointment(s):05/26/2019 1:30 pm - Ica Nuclear Schedule at [facility]05/22/2019 8:45 am - Sergio Lyon DO FACC at [facility]06/10/2019 11:30 am - Ciro Rosano, PA-C at [facility]06/10/2019 11:30 am - BONY Simon at [facility].06/10/2019 11:30 am - ANTHONY De at [facility].05/06/2020 9:20 am - Jefferson Chandler MD at [facility] Hvfokxxnfed00/08/2019 9: 30 am - Mirna Felix M.D. at [facility].06/10/2019 11:30 am - Mirna Felix M.D. at [facility]05/21/2019 - Sergio Lyon DO FACCI44.7 Left bundle-branch block, unspecifiedNew Orders:Stress Test , Pharmacologic Nuclear (Lexiscan), Ordered: 05/21/19Comments:Right now you are in and out of a left bundle branch block.The metoprolol slows electrical conduction and increases the probability and time you are in this conduction.We will try to use something elsefor blood pressure to slow the progression of this.Start taking 5 mg of amlodipine once a day.Take 25 mg of metoprolol (I sent a new prescription to your pharmacy) for 1 week and then discontinue metoprolol completely. If your blood pressure stays elevated, we can increase the amlodipine to maximum dose 10 mg.Follow up:Please schedule echo at [facility] (may need definity) f/u after testing and repeat EKG that xmwhgW20.02 Shortness of breathNew Orders:Echocardiogram, Ordered: 05/21/19E87.6 KchbtidatagJ92.42 [id number] Essential (primary) hypertensionNew Medication:Amlodipine Besylate 5 mg - 1 by mouth every day
[2019-06-10] MEDS ORDERED: Midazolam* 1 MG/ML 5 ML VIAL (5 MG) ONE ×2 (08:25→11:43)
[2019-06-10] MEDS ORDERED: fentaNYL* 50 MCG/ML 2 ML VIAL (100 MCG VIAL) ONE ×2 (08:25→12:14)
[2019-06-10] MEDS ORDERED: Dexamethasone TAB* 4 MG ONE (08:37)
[2019-06-10] MEDS ORDERED: Acetaminophen TAB* 325 MG ONE (08:37)
[2019-06-10] MEDS ORDERED: celeCOXIB CAP* 200 MG ONE (08:37)
[2019-06-10] MEDS ORDERED: Gabapentin CAP(*) 300 MG ONE (08:37)
[2019-06-10] MEDS ORDERED: Ondansetron ODT TAB* 4 MG ONE (08:37)
[2019-06-10] MEDS ORDERED: Famotidine IV* 10 MG/ML 2 ML (20 mg) ONE (08:38)
[2019-06-10] MEDS ORDERED: Buffered Lidocaine 1% SYRIN* 1 ML/SYRINGE INTRADERM ONE (08:38)
[2019-06-10] MEDS ORDERED: ceFAZolin 2 GM in NS PREMIX(*) 2 GM/100 ML BAG IVPB ONE (08:38)
[2019-06-10] MEDS ORDERED: Bupivacaine 0.5%* 50 ML VIAL ONE (10:26)
[2019-06-10] MEDS ORDERED: KETAMINE HCL* 50 MG/ML 10 ML VIAL ONE (11:20)
[2019-06-10] MEDS ORDERED: Phenylephrine 10 MG/ML VIAL* 1 ML VIAL ONE (13:39)
[2019-06-10] MEDS ORDERED: Propofol* 500 MG/50 ML BTL ONE (13:39)
[2019-06-10] MEDS ORDERED: Metoprolol Tartrate IV* 1 MG/ML 5 ML VIAL ONE (13:40)
[2019-06-10] MEDS ORDERED: Lidocaine 2% PF * 5 ML VIAL ONE (13:40)
[2019-06-10] MEDS ORDERED: Bupivacaine 0.5% SDV PF* 30ML VIAL ONE (13:40)
[2019-06-10] MEDS ORDERED: Bupivacaine 0.25% EPI 200,000* 30 ML SDV ONE (13:40)
[2019-06-10] MEDS ORDERED: Magnesium Hydroxide LIQ* 30 ML UDC PO PRN (13:56)
[2019-06-10] MEDS ORDERED: Acetaminophen TAB* 325 MG PO PRN (13:56)
[2019-06-10] MEDS ORDERED: Ondansetron INJ* 2 MG/ML VIAL IV PRN (14:05)
[2019-06-10] MEDS ORDERED: diPHENhydraMINE PO* 25 MG PO PRN (14:05)
[2019-06-10] MEDS ORDERED: Temazepam CAP* 15 MG PO PRN (14:05)
[2019-06-10] MEDS ORDERED: Polyethylene Glycol 3350* 17 GM PACKET PO PRN (14:05)
[2019-06-10] MEDS ORDERED: Morphine INJ* 2 MG/ML 1 ML SYRINGE (TWO MG - NEW SYRINGE VERSION) IV PRN (14:05)
[2019-06-10] MEDS ORDERED: diPHENhydraMINE LIQ* 12.5 MG/5 ML UDC PO PRN (14:05)
[2019-06-10] MEDS ORDERED: diPHENhydraMINE IV* 50 MG/ML 1 ml VIAL (BENADRYL) IV PRN (14:05)
[2019-06-10] MEDS ORDERED: Bisacodyl SUPP* 10 MG SUPP PR PRN (14:05)
[2019-06-10] MEDS ORDERED: Ondansetron ODT TAB* 4 MG PO PRN (14:05)
[2019-06-10] MEDS ORDERED: Cyclobenzaprine TAB* 10 MG PO PRN (14:05)
[2019-06-10] MEDS ORDERED: Cetirizine* 10 MG TAB PO PRN (14:08)
[2019-06-10] MEDS: Lactated Ringers 1000 ML Bag* 1,000 ML IV SCH (16:23)
--- NOTE | 2019-06-10 16:39 | PN ---
Progress Note - Progress Note Date of Service: 06/10/19 Note: Patient seen at bedside, she is having some mild knee pain s/p left total knee arthroplasty. Mild nausea. Active DF left foot. Sensation intact distally.
[2019-06-10] MEDS ORDERED: oxyCODONE/Acetamin 5/325 MG* TAB ONE (16:40)
[2019-06-10] MEDS: oxyCODONE/Acetamin 5/325 MG* TAB PO PRN (16:41)
[2019-06-10] MEDS: oxyCODONE TAB* 5 MG TAB PO PRN ×2 (18:23→22:36)
--- NOTE | 2019-06-10 19:42 | CONSULT ---
Subjective Date of Service: 06/10/19 Interval History: Patient is 68 y/o female with history of HTN, Hypelipidemia, MICKI admitted for elective left TKA. We were asked by ortho for consultation and co-manage her HTN, Hyperlipidemia and MICKI. Patient seen on Short stay post op, complaining of pain and headache but no chest pain and no shortness of breath. Family History: Unchanged from Admission Social History: Unchanged from Admission Past Medical History: Unchanged from Admission Review of Systems - Measurements Intake and Output: Intake and Output Last 24 Hours 06/08/19 06/09/19 06/10/19 06/11/19 06:59 06:59 06:59 06:59 Intake Total 2860 Output Total 1475 Balance 1385 Weight 255 lb Intake: IV Fluids 1999 LR 2000 Oral 860 Output: Robledo 1225 Estimated Blood Loss 250 - Review of Systems Constitutional Symptoms: Negative: Weight Gain, Fever Dermatology: Negative: Skin Lesions, Skin Lumps HEENT: Positive: Normal Negative: Vertigo Eyes: Negative: Change in Vision Thyroid: Positive: Other - s/p partial thyroidectomy. not on any medicaitons Pulmonary: Negative: Cough, Wheezing Cardiology: Negative: Chest Pain, Shortness of Breath Gastroenterology: Negative: Abdominal Pain, Nausea, Vomiting Musculoskeletal: Positive: Joint Pain Objective Active Medications: Acetaminophen (Tylenol Tab*) 975 mg PO Q8H PRN PRN Reason: PAIN Amlodipine Besylate (Norvasc Tab*) 10 mg PO QAM ALBIN Apixaban (Eliquis*) 2.5 mg PO BID ALBIN Atorvastatin Calcium (Lipitor*) 20 mg PO QAM ALBIN Bisacodyl (Dulcolax Supp*) 10 mg NH DAILY PRN PRN Reason: constipation Cetirizine HCl (Zyrtec*) 10 mg PO DAILY PRN PRN Reason: CONGESTION Chlorthalidone (Hygroton Tab*) 25 mg PO QAM ALBIN Cyclobenzaprine HCl (Flexeril Tab*) 5 mg PO TID PRN PRN Reason: SPASMS Diphenhydramine HCl (Benadryl Iv*) 12.5 mg IV Q6H PRN PRN Reason: PRURITIS Diphenhydramine HCl (Benadryl Liq*) 12.5 mg PO Q6H PRN PRN Reason: itching Diphenhydramine HCl (Benadryl Po*) 25 mg PO Q6H PRN PRN Reason: itching Docusate Sodium (Colace Cap*) 100 mg PO BID [facility] Fluticasone Propionate (Flonase Nasal Diana 50mcg*) 2 spray BOTH NARES BEDTIME [facility] Tranexamic Acid 1,000 mg/ (Sodium Chloride) 60 mls @ 120 mls/hr IV ONCE Stop: 06/10/19 23:59 Cefazolin Sodium 1 gm/ Sodium (Chloride) 50 mls @ 200 mls/hr IVPB Q8H [facility] Stop: 06/11/19 11:44 Lactated Ringer's (Lactated Ringers 1000 Ml Bag*) 1,000 mls @ 100 mls/hr IV PER RATE [facility] Last Admin: 06/10/19 16:23 Dose: 100 mls/hr Lactulose (Lactulose*) 30 ml PO Q6H PRN PRN Reason: constipation Losartan Potassium (Cozaar Tab*) 100 mg PO QAM [facility] Magnesium Hydroxide (Milk Of Magnesia Liq*) 30 ml PO BID [facility] Magnesium Hydroxide (Milk Of Magnesia Liq*) 30 ml PO Q6H PRN PRN Reason: constipation Morphine Sulfate (Morphine Inj (Syringe))*) 2 mg IV Q2H PRN PRN Reason: PAIN - UNRELIEVED Nft: Hydrocortisone [Proctozone-Hc] 2.5 % 2.5 % TOPICAL QAM [facility] Nft: Potassium [ (Potassium] 99 Mg)) 99 mg PO 1200 [facility] Ondansetron HCl (Zofran Inj*) 4 mg IV Q6H PRN PRN Reason: nausea Ondansetron HCl (Zofran Odt Tab*) 4 mg PO Q6H PRN PRN Reason: NAUSEA Oxycodone HCl (Roxycodone Tab*) 10 mg PO Q4H PRN PRN Reason: PAIN - SEVERE Last Admin: 06/10/19 18:23 Dose: 10 mg Oxycodone/Acetaminophen (Percocet 5/325 Tab*) 2 tab PO Q4H PRN PRN Reason: PAIN - MODERATE Last Admin: 06/10/19 16:41 Dose: 2 tab Polyethylene Glycol/Electrolytes (Miralax*) 17 gm PO DAILY PRN PRN Reason: Constipation Solifenacin (Vesicare(Nf)) 10 mg PO QAM ALBIN Temazepam (Restoril Cap*) 15 mg PO BEDTIME PRN PRN Reason: INSOMNIA Tramadol HCl (Ultram*) 50 mg PO Q6H PRN PRN Reason: PAIN Vital Signs - 8 hr 06/10/19 06/10/19 06/10/19 13:50 13:56 14:00 Temperature 98.8 F 97.9 F Pulse Rate 95 85 76 Respiratory 20 16 18 Rate Blood Pressure 122/65 121/53 113/48 (mmHg) O2 Sat by Pulse 95 95 94 Oximetry 06/10/19 06/10/19 06/10/19 14:01 14:05 14:15 Temperature Pulse Rate 85 84 84 Respiratory 25 18 23 Rate Blood Pressure 96/57 109/56 105/52 (mmHg) O2 Sat by Pulse 94 94 94 Oximetry 06/10/19 06/10/19 06/10/19 14:30 14:46 15:01 Temperature 97.1 F Pulse Rate 82 86 79 Respiratory 14 25 27 Rate Blood Pressure 126/47 110/64 113/55 (mmHg) O2 Sat by Pulse 95 94 96 Oximetry 06/10/19 06/10/19 06/10/19 15:15 15:30 15:45 Temperature Pulse Rate 80 81 78 Respiratory 23 21 16 Rate Blood Pressure 105/57 108/53 116/59 (mmHg) O2 Sat by Pulse 95 94 96 Oximetry 06/10/19 06/10/19 06/10/19 16:00 16:41 16:54 Temperature 96.8 F Pulse Rate 78 Respiratory 22 14 14 Rate Blood Pressure 113/56 (mmHg) O2 Sat by Pulse 96 Oximetry 06/10/19 06/10/19 06/10/19 16:55 18:23 18:40 Temperature 98.4 F Pulse Rate 75 Respiratory 14 16 17 Rate Blood Pressure 123/43 (mmHg) O2 Sat by Pulse 95 94 Oximetry Oxygen Devices in Use Now: Nasal Cannula Appearance: awake, pleasant no distress Eyes: No Scleral Icterus, PERRLA Ears/Nose/Mouth/Throat: NL Teeth, Lips, Gums, Mucous Membranes Moist Neck: NL Appearance and Movements; NL JVP, Trachea Midline Respiratory: Symmetrical Chest Expansion and Respiratory Effort, Clear to Auscultation Cardiovascular: NL Sounds; No Murmurs; No JVD, No Edema Abdominal: NL Sounds; No Tenderness; No Distention Extremities: No Edema, - - left joint in dressing post operatively Neurological: Alert and Oriented x 3 Result Diagrams: 06/11/19 06:38 06/11/19 06:38 Assessment/Plan - Billing Plan By Medical Problem: 1. Left knee osteoarthritis s/p left total knee arthroplasty 06/10/19 - Pain control, activity, PT as per ortho 2. HTN - Continue amlodipine 10 mg daily; hold chlorthalidone 25 mg for now as she may run low BP due to post op and pain meds; Losartan 100 mg daily 3. Hyperlipidemia - Continue atorvastatin 20 mg daily 4. MICKI - May use her own CPAP 5. Hypothyroidism - I don't see it listed on her home meds. last TSH 05/06/19 was therapeutic. This can be deferred for outpatient, it would not be useful to check level in the acute setting and post operatively. Defer to PCP VTE PPX: As per ortho currently on Eliquis 2.5 mg bid. Diet: Regular
[2019-06-10] MEDS: ceFAZolin 1 GM ADVAN(*) 1 GM in NS 0.9% 50 ML* 50 ML IVPB SCH (20:14)
--- NOTE | 2019-06-10 20:14 | OP ---
Operative Report - Blank - Operative Report Date of Operation: 06/10/19 Note: JULIETA IVEY 1950 Date of Surgery: 06/10/19 Mirna Felix MD [employer] Technical Lead: Sahra CRUZ did help throughout the procedure with preparation of the knee, wound retraction, manipulation of the knee, and wound closure. Anesthesiologist: Jeannine Nebwy MD Anesthesia Type: Spinal Preoperative Diagnosis: Left severe degenerative osteoarthritis of the knee Postoperative Diagnosis: As above Procedure Performed: Left Total Knee Arthroplasty Tourniquet time: 60 minutes Complications: None Specimen: Bone and cartilage from the left knee joint sent to pathology. Hardware Used: Cemented [employer]hew total knee hardware was used - For the femur a size 6 left legion posterior stabilized femoral component, for the tibia a size 5 left cassia II tibial baseplate, for the insert a size 11 mm 5- 6 posterior stabilized articular polyethylene insert, and for the patella a size 32 3-peg all poly patella. Brief History/Indication: JULIETA IVEY was known in clinic and had a history of severe left knee pain and swelling. She failed conservative treatment with anti-inflammatories, pain pills, intra-articular injections and physical therapy. She elected to undergo left total knee arthroplasty due to continued pain and decreased quality of life. Radiographs showed severe end stage osteoarthritis of the knee with bone on bone contact. Informed consent was obtained from the patient. She understood the risks of surgery included but were not limited to: bleeding, infection, damage to nearby structures, intraoperative fracture, nerve palsy, failure of the hardware, early loosening, knee stiffness or loss of motion, anesthesia complications, stroke, heart attack , blood clot and . She wished to proceed. Intra-Operative Findings: Intraoperatively the patient was noted to have severe loss of cartilage in all 3 compartments of the knee. Description of the Procedure: JULIETA IVEY was identified in the preanesthesia unit. Her left knee was marked as the correct operative side. Informed consent was signed and placed in the chart. The patient was taken to the operating room and placed under anesthesia without complication. A craig catheter was placed. A tourniquet was placed on the left thigh. The left lower extremity was prepped and draped in the usual sterile fashion. Preoperative time-out was made to correctly identify the patient, side and site. Appropriate intraoperative antibiotics were given within one hour of incision. Tourniquet was inflated. A midline incision was made and carried sharply down to the extensor mechanism. A new 10 blade was used to make a standard medial parapatellar arthrotomy. The patella was subluxed laterally. Electrocautery was used to dissect soft tissue off the superomedial tibia to the midsagittal plane. The knee was flexed up. The anterior horn of the lateral meniscus and the ACL were sharply incised. A drill was used to enter the distal femur. The intramedullary distal femoral cutting guide was pinned on the distal femur. The oscillating saw was used to make the distal femoral cut. The external rotation guide was pinned on the distal femur and the distal femur was sized to a size 6. The size 6 multi-cutting jig was pinned on the distal femur. The oscillating saw was used to make the appropriate 4 chamfer cuts. Next the PCL was completely released. The extramedullary tibial cutting guide was pinned on the proximal tibia and the oscillating saw was used to make the proximal tibial cut perpendicular to the mechanical axis of the tibia. The bone was carefully removed. The knee was brought out into full extension. The spacer block was placed and had excellent fit with the knee in full extension. The medial and lateral ligaments were well balanced. The flexion and extension gaps were well balanced. The knee was flexed up. Lamina pressure test operator was placed both medially and laterally. Any remaining meniscus was removed with electrocautery. Curved osteotome was used to remove any posterior osteophytes. The tibial tray and drop stephania were placed and confirmed a satisfactory tibial cut. The size 6 left narrow femoral trial was impacted onto the distal femur. This trial had excellent fit and stability. The box for the posterior stabilized implant was prepared using a box cut osteotome and a reamer. Next a tibial tray trial and 9 mm insert trial was placed. The knee was taken through a range of motion and had full extension to 130 degrees of flexion. Patellofemoral tracking was satisfactory. The patella was inverted and sized to a size 32. Three peg holes were drilled through the size 32 drill guide. The trial patella was placed and the knee was taken through a range of motion. There was satisfactory patellofemoral tracking. All trials were removed. The tibia was subluxed anteriorly and sized to a size 5. The proximal tibial was prepared with a size 5 keel punch. All bony cut surfaces were irrigated with sterile saline and dried. Final implants were cemented into place starting with the tibia, followed by the femur, and last the patella. A 9 mm insert trial was placed and the knee was brought into full extension. Tourniquet was turned down and the knee was copiously irrigated with sterile saline. Electrocautery was used to obtain meticulous hemostasis. Once the cement had fully cured, the insert trial was removed. Any excess cement was removed from around the hardware and capsule. Final insert chosen was a 11 mm posterior stabilized Cassia II articular insert size 5-6. Stability of the insert was checked and noted to be stable. The extensor mechanism was closed using number 1 vicryls. The rest of the incision was closed in a layered fashion using 0 and 2-0 vicryls. The skin was closed using 3-0 nylon suture. Sterile xeroform, 4x4s and webril were used to cover the incision. Simeon wrap and cold pack were used to cover the dressings. The patients anesthesia was reversed without difficulty. She was taken to the PACU in stable condition. Intended weight-bearing will be as tolerated.
[2019-06-10] MEDS: Fluticasone NASAL SPRAY 50MCG* 16 gm SPRAY BTL BOTH NARES SCH (22:36)
[2019-06-10] MEDS: Magnesium Hydroxide LIQ* 30 ML UDC PO SCH (22:36)
[2019-06-10] MEDS: Docusate CAP* 100 MG PO SCH (22:36)
[2019-06-11] MEDS: Lactated Ringers 1000 ML Bag* 1,000 ML IV SCH (02:34)
[2019-06-11] MEDS: oxyCODONE TAB* 5 MG TAB PO PRN ×2 (03:24→11:24)
[2019-06-11] MEDS: ceFAZolin 1 GM ADVAN(*) 1 GM in NS 0.9% 50 ML* 50 ML IVPB SCH ×2 (03:25→11:12)
[2019-06-11 07:03] LABS: Hematocrit 35 % (35-47); Mean Platelet Volume 7.7 fL (7.4-10.4); Platelet Count 196 10^3/uL (150-450)
[2019-06-11 07:11] LABS: BUN/Creatinine Ratio 25.5 (8-20); Calcium 8.8 mg/dL (8.6-10.3); EGFR African American 144.7 (>60); EGFR Non-African American 119.6 (>60)
[2019-06-11] MEDS ORDERED: SOLIFENACIN 10 MG PO SCH (09:00)
[2019-06-11] MEDS ORDERED: HYDROCORTISONE 2.5% TOPICAL SCH (09:00)
[2019-06-11] MEDS ORDERED: Chlorthalidone TAB* 50 MG PO SCH (09:00)
[2019-06-11] MEDS: oxyCODONE/Acetamin 5/325 MG* TAB PO PRN ×3 (09:42→21:05)
[2019-06-11] MEDS: amLODIPine TAB* 5 MG PO SCH (09:44)
[2019-06-11] MEDS: Docusate CAP* 100 MG PO SCH ×2 (09:45→21:08)
[2019-06-11] MEDS: Atorvastatin* 20 MG TAB PO SCH (09:45)
[2019-06-11] MEDS: Apixaban* 2.5 MG TAB PO SCH ×2 (09:45→21:08)
[2019-06-11] MEDS: Losartan TAB* 25 MG PO SCH (09:46)
[2019-06-11] MEDS: Magnesium Hydroxide LIQ* 30 ML UDC PO SCH ×2 (09:46→21:08)
[2019-06-11] MEDS: Potassium Chlor TAB* 20 MEQ TAB.ER PO SCH ×3 (09:47→21:08)
--- NOTE | 2019-06-11 10:56 | PN ---
Progress Note - Progress Note Date of Service: 06/11/19 SOAP: Subjective: []Pt seen and examined at bedside. She fees well and denies any chest pain, shortness of breath, dizziness or nausea. Objective: []Gen: NAD LLE: Dressing CDI, thigh soft, DF/PF intact, DP2+, sensation intact to light touch distally Calves supple and nontender without erythema, edema or palpable cords Assessment: []POD 1 sp LTK Plan: []WBAT PT/OT eliquis 2.5 mg po BID Potassium 3.0, replacement ordered this morning by Dr Felix Vital Signs Temp 98.9 F 06/11/19 07:27 Pulse 85 06/11/19 07:27 Resp 18 06/11/19 09:42 BP 127/56 06/11/19 07:27 Pulse Ox 90 06/11/19 07:27 Intake & Output 06/10/19 06/11/19 06/11/19 18:59 06:59 18:59 Intake Total 2860 2470 360 Output Total 1475 1100 400 Balance 1385 1370 -40 Weight 255 lb Intake: IV Fluids 2000 950 LR 2000 950 Oral 860 1520 360 Output: Urine 400 Robledo 1225 1100 Estimated Blood Loss 250 Laboratory Last Values Hgb 12.0 g/dL (12.0-16.0) 06/11/19 06:38 Hct 35 % (35-47) 06/11/19 06:38 Plt Count 196 10^3/uL (150-450) 06/11/19 06:38 MPV 7.7 fL (7.4-10.4) 06/11/19 06:38 Sodium 136 mmol/L (135-145) 06/11/19 06:38 Potassium 3.0 mmol/L (3.5-5.0) L 06/11/19 06:38 Chloride 97 mmol/L (101-111) L 06/11/19 06:38 Carbon Dioxide 29 mmol/L (22-32) 06/11/19 06:38 Anion Gap 10 mmol/L (2-11) 06/11/19 06:38 BUN 13 mg/dL (6-24) 06/11/19 06:38 Creatinine 0.51 mg/dL (0.51-0.95) 06/11/19 06:38 Est GFR ( Amer) 144.7 (>60) 06/11/19 06:38 Est GFR (Non-Af Amer) 119.6 (>60) 06/11/19 06:38 BUN/Creatinine Ratio 25.5 (8-20) H 06/11/19 06:38 Glucose 137 mg/dL (70-100) H 06/11/19 06:38 Calcium 8.8 mg/dL (8.6-10.3) 06/11/19 06:38
[2019-06-11] MEDS ORDERED: POTASSIUM 99 MG PO SCH (12:00)
[2019-06-11] MEDS: CMC: Solifenacin(NF) 5 MG TAB PO SCH (15:15)
[2019-06-11] MEDS: traMADol TAB* 50 MG PO PRN (16:53)
--- NOTE | 2019-06-11 17:24 | PN ---
Subjective Date of Service: 06/11/19 Interval History: seen this morning, no distress. she had occasional pvc's Social History: Unchanged from Admission Past Medical History: Unchanged from Admission Objective Active Medications: Acetaminophen (Tylenol Tab*) 975 mg PO Q8H PRN PRN Reason: PAIN Amlodipine Besylate ([facility]*) [facility] Last Admin: 06/11/19 09:44 Dose: 10 mg Apixaban (Eliquis*) 2.5 mg PO BID [facility] Last Admin: 06/11/19 09:45 Dose: 2.5 mg Atorvastatin Calcium (Lipitor*) 20 mg PO [facility] Last Admin: 06/11/19 09:45 Dose: 20 mg Bisacodyl (Dulcolax Supp*) 10 mg ID DAILY PRN PRN Reason: constipation Cetirizine HCl (Zyrtec*) 10 mg PO DAILY PRN PRN Reason: CONGESTION Cyclobenzaprine HCl (Flexeril Tab*) 5 mg PO TID PRN PRN Reason: SPASMS Diphenhydramine HCl (Benadryl Iv*) 12.5 mg IV Q6H PRN PRN Reason: PRURITIS Diphenhydramine HCl (Benadryl Liq*) 12.5 mg PO Q6H PRN PRN Reason: itching Diphenhydramine HCl (Benadryl Po*) 25 mg PO Q6H PRN PRN Reason: itching Docusate Sodium (Colace Cap*) 100 mg PO BID [facility] Last Admin: 06/11/19 09:45 Dose: 100 mg Fluticasone Propionate (Flonase Nasal [place] 50mcg*) 2 spray BOTH NARES BEDTIME [facility] Last Admin: 06/10/19 22:36 Dose: 2 spray Hydrocortisone (Hytone Cream 1%*) 1 applic TOPICAL [facility] Lactated Ringer's (Lactated Ringers 1000 Ml Bag*) 1,000 mls @ 100 mls/hr IV PER RATE [facility] Last Admin: 06/11/19 02:34 Dose: 100 mls/hr Lactulose (Lactulose*) 30 ml PO Q6H PRN PRN Reason: constipation Losartan Potassium (Cozaar Tab*) 100 mg PO [facility] Last Admin: 06/11/19 09:46 Dose: 100 mg Magnesium Hydroxide (Milk Of Magnesia Liq*) 30 ml PO BID [facility] Last Admin: 06/11/19 09:46 Dose: 30 ml Magnesium Hydroxide (Milk Of Magnesia Liq*) 30 ml PO Q6H PRN PRN Reason: constipation Morphine Sulfate (Morphine Inj (Syringe))*) 2 mg IV Q2H PRN PRN Reason: PAIN - UNRELIEVED Nft: Potassium [ (Potassium] 99 Mg)) 99 mg PO 1200 [facility] Last Admin: 06/11/19 11:24 Dose: Not Given Ondansetron HCl (Zofran Inj*) 4 mg IV Q6H PRN PRN Reason: nausea Ondansetron HCl (Zofran Odt Tab*) 4 mg PO Q6H PRN PRN Reason: NAUSEA Oxycodone HCl (Roxycodone Tab*) 10 mg PO Q4H PRN PRN Reason: PAIN - SEVERE Last Admin: 06/11/19 11:24 Dose: 10 mg Oxycodone/Acetaminophen (Percocet 5/325 Tab*) 2 tab PO Q4H PRN PRN Reason: PAIN - MODERATE Last Admin: 06/11/19 15:16 Dose: 2 tab Polyethylene Glycol/Electrolytes (Miralax*) 17 gm PO DAILY PRN PRN Reason: Constipation Potassium Chloride (Klor Con Er Tab*) 20 meq PO TID [facility] Stop: 06/13/19 09:00 Last Admin: 06/11/19 15:17 Dose: 20 meq Solifenacin (Vesicare(Nf)) 10 mg PO QAM [facility] Last Admin: 06/11/19 15:15 Dose: Not Given Temazepam (Restoril Cap*) 15 mg PO BEDTIME PRN PRN Reason: INSOMNIA Tramadol HCl (Ultram*) 50 mg PO Q6H PRN PRN Reason: PAIN Last Admin: 06/11/19 16:53 Dose: 50 mg Vital Signs - 8 hr 06/11/19 06/11/19 06/11/19 09:42 11:24 11:27 Temperature 98.5 F Pulse Rate 82 Respiratory 18 18 14 Rate Blood Pressure 133/52 (mmHg) O2 Sat by Pulse 92 Oximetry 06/11/19 06/11/19 06/11/19 15:16 15:46 16:53 Temperature 98.1 F Pulse Rate 86 Respiratory 18 17 18 Rate Blood Pressure 133/55 (mmHg) O2 Sat by Pulse 95 Oximetry Oxygen Devices in Use Now: Nasal Cannula Appearance: awake pleasant. no distress Eyes: No Scleral Icterus Ears/Nose/Mouth/Throat: Mucous Membranes Moist Neck: NL Appearance and Movements; NL JVP, Trachea Midline Respiratory: Symmetrical Chest Expansion and Respiratory Effort, Clear to Auscultation Cardiovascular: NL Sounds; No Murmurs; No JVD Abdominal: NL Sounds; No Tenderness; No Distention Skin: No Rash or Ulcers Neurological: Alert and Oriented x 3 Result Diagrams: 06/11/19 06:38 06/11/19 06:38 Assess/Plan/Problems-Billing Plan By Medical Problem: 1. Left knee osteoarthritis s/p left total knee arthroplasty 06/10/19 - Pain control, activity, PT as per ortho 2. HTN - Continue amlodipine 10 mg daily; keep chlorthalidone 25 mg for today as well as her BP was soft this morning. Will reassess in am and possibly resume it. continue Losartan 100 mg daily 3. Hyperlipidemia - Continue atorvastatin 20 mg daily 4. MICKI - May use her own CPAP 5. Hypothyroidism - I don't see it listed on her home meds. last TSH 05/06/19 was therapeutic. This can be deferred for outpatient, it would not be useful to check level in the acute setting and post operatively. Defer to PCP 6. Hypokalemia - supplemented by ortho 20 meq tid. Will recheck in am VTE PPX: As per ortho currently on Eliquis 2.5 mg bid. Diet: Regular
[2019-06-11] MEDS: Fluticasone NASAL SPRAY 50MCG* 16 gm SPRAY BTL BOTH NARES SCH (22:16)
[2019-06-12] MEDS: traMADol TAB* 50 MG PO PRN ×2 (04:30→10:47)
[2019-06-12 06:48] LABS: Hematocrit 34 % (35-47); Hemoglobin 11.6 g/dL (12.0-16.0); Platelet Count 178 10^3/uL (150-450)
[2019-06-12 06:59] LABS: BUN/Creatinine Ratio 23.9 (8-20); Calcium 8.5 mg/dL (8.6-10.3); EGFR Non-African American 134.7 (>60); Magnesium 1.8 mg/dL (1.9-2.7); Potassium 3.1 mmol/L (3.5-5.0)
[2019-06-12 07:40] VITALS: BP 158/73
[2019-06-12] MEDS ORDERED: Magnesium Sulfate 2 GM IV* 2 GM/50 ML BAG IVPB ONE (08:34)
[2019-06-12] MEDS ORDERED: Chlorthalidone TAB* 50 MG PO SCH (09:00)
[2019-06-12] MEDS: oxyCODONE/Acetamin 5/325 MG* TAB PO PRN (09:01)
[2019-06-12] MEDS: amLODIPine TAB* 5 MG PO SCH (09:08)
[2019-06-12] MEDS: Apixaban* 2.5 MG TAB PO SCH (09:09)
[2019-06-12] MEDS: Atorvastatin* 20 MG TAB PO SCH (09:10)
[2019-06-12] MEDS: Losartan TAB* 25 MG PO SCH (09:11)
[2019-06-12] MEDS: Docusate CAP* 100 MG PO SCH (09:11)
[2019-06-12] MEDS: Potassium Chlor TAB* 20 MEQ TAB.ER PO SCH (09:12)
[2019-06-12] MEDS: Magnesium Hydroxide LIQ* 30 ML UDC PO SCH (09:12)
[2019-06-12] MEDS: CMC: Solifenacin(NF) 5 MG TAB PO SCH (10:16)
--- NOTE | 2019-06-12 10:16 | DS ---
Orthopedic Discharge Summary - Discharge Summary Date of Admission:06/10/19 Date of Discharge: 06/12/19 Date of Surgery: 06/10/19 Attending Orthopedic Provider: Dr Felix Pre-operative Diagnosis: Left knee osteoarthritis Operative Procedure: left total knee replacement Disposition of Patient: ru Condition of Patient: stable History: JULIETA IVEY is a 68 year old F with years of increasingly severe left knee pain. Patient has failed conservative management and has elected to undergo a left total knee replacement Hospital Course: JULIETA was admitted to [facility] on 06/10/19. Patient underwent a left total knee replacement without complication followed by a brief recovery in PACU and transfer to the Short Stay Surgical Unit in stable condition. Our hospitalist service, physical therapy and occupational therapy also participated in this patients care. Post-op day 1: patient was alert and in no acute distress. Dressing was clean, dry and intact. Operative extremity dorsiflexion and plantarflexion intact, sensation intact to light touch distally, DP2+. Post-op day two: dressing was changed, incision was clean , dry and intact. Patient felt well without chest pain, shortness of breath, dizziness or nausea. Calves were supple and nontender. Patient was deemed to be medically and orthopedically stable for discharge to [facility]. Physical therapy goals were met. Her potassium was low during her stay and required replacement, it should be monitored and replaced appropriately while in [facility]. Home Medications Medication Instructions Recorded Confirmed Type Atorvastatin* Lipitor 20 MG* 20 mg PO QAM 07/29/13 06/10/19 History Biotin 5 mg PO 1200 06/27/18 06/10/19 History Chlorthalidone TAB* [Hygroton TAB*] 25 mg PO QAM 06/27/18 06/10/19 History Hydrocortisone [Proctozone-Hc] 2.5 % TOPICAL QAM 06/27/18 06/10/19 History Losartan TAB* [Cozaar TAB*] 100 mg PO QAM 06/27/18 06/10/19 History Mometasone NASAL (NF) [Nasonex 2 spray BOTH NARES BEDTIME 06/27/18 06/10/19 History (NF)] Multivitamins/Minerals TAB* 1 tab PO 1200 06/27/18 06/10/19 History [Theragran/minerals TAB*] Potassium 99 mg PO 1200 06/27/18 06/10/19 History Solifenacin(NF) [Vesicare(NF)] 10 mg PO QAM 06/27/18 06/10/19 History Tumeric 99 mg PO 1200 06/27/18 06/10/19 History Acetaminophen [Acetaminophen ER] 1,000 mg PO DAILY PRN 06/02/19 06/10/19 History Amlodipine Besylate [Norvasc] 10 mg PO QAM 06/02/19 06/10/19 History Loratadine 10 mg PO DAILY PRN 06/02/19 06/10/19 History Metronidazole (TOPICAL)(NF) 1 dose TOPICAL BEDTIME 06/02/19 06/10/19 History [Metrocream (NF)] Sennosides [Senna] 2 cap PO QPM 06/02/19 06/10/19 History Acetaminophen TAB* [Tylenol TAB*] 975 mg PO Q8H PRN tab 06/12/19 Rx Apixaban* [Eliquis*] 2.5 mg PO BID tab 06/12/19 Rx Docusate CAP* [Colace Cap*] 100 mg PO BID cap 06/12/19 Rx Potassium Chlor TAB* [Potassium 20 meq PO TID tab.er 06/12/19 Rx Chlor TAB 20 MEQ*] oxyCODONE/Acetamin 5/325 MG* 2 tab PO Q4H PRN tab 06/12/19 Rx [Percocet 5/325 TAB*] DC to [facility] Discharge Instructions following Orthopedic Surgery: Activity: * Weight Bearing as tolerated * Continue physical therapy and occupational therapy exercises as shown Wound care: * OK to shower on post-op day 3, no bathing, swimming, or submerging wound. * Use gentle soap, pat dry. Cover with gauze, LUPE wrap or tape. * [facility] nurse to do wound checks. Call Orthopedic office for: * Increased drainage * Redness * Increased pain * Fever Go to ER with shortness of breath or chest pain. Diet: * Regular diet * Increase fluids and fiber to prevent constipation. * Continue to use stool softeners, call office if no bowel motion within 48 hours. Medications See Home Medication List in your packet for medications that you should take after discharge. DVT Prophylaxis: This medication increases bleeding tendency Eliquis Dosin.5 mg, 1 tab every 12 hours x 30 days post op Pain Control: Percocet Dosin/325 mg 1-2 tabs by mouth every 4-6 hours as needed for pain. Maximum of 10 tabs per day. Wean off as soon as pain allows. Hold for sedation Please note that Percocet contains Tylenol (acetaminophen). Maximum daily dose of Tylenol is 4000 mg from all sources. Antibiotics are required prior to any dental work. Your potassium was low during your stay, it should be monitored while in [facility] and replaced appropriately FOLLOW UP: Follow up with [Isidro] Within 10-14 days, call for appointment Please call our office with any questions or concerns ([phone])
[2019-06-12] MEDS ORDERED: Potassium Chloride* LIQUID 20 MEQ/15 ML UDC PO ONE (11:00)
--- NOTE | 2019-06-12 15:17 | PN ---
Subjective Date of Service: 06/12/19 Interval History: patient seen this morning, she was expressing increase pain in her leg. otherwise no events overnight. Her potassium was low still this morning despite being on potassium 20 meq tid. Past Medical History: Unchanged from Admission Objective Vital Signs - 8 hr 06/12/19 06/12/19 06/12/19 07:39 08:00 09:01 Temperature 98.1 F Pulse Rate 99 Respiratory 16 18 18 Rate Blood Pressure 158/73 (mmHg) O2 Sat by Pulse 97 97 Oximetry 06/12/19 10:47 Temperature Pulse Rate Respiratory 18 Rate Blood Pressure (mmHg) O2 Sat by Pulse Oximetry Oxygen Devices in Use Now: None Appearance: Awake, alert. no acute distress Eyes: No Scleral Icterus Ears/Nose/Mouth/Throat: NL Teeth, Lips, Gums, Mucous Membranes Moist Neck: NL Appearance and Movements; NL JVP, Trachea Midline Respiratory: Symmetrical Chest Expansion and Respiratory Effort, Clear to Auscultation Cardiovascular: NL Sounds; No Murmurs; No JVD, - - left lower leg in dressing, intact. Neurological: Alert and Oriented x 3 Result Diagrams: 06/12/19 05:23 06/12/19 05:23 Assess/Plan/Problems-Billing Plan By Medical Problem: 1. Left knee osteoarthritis s/p left total knee arthroplasty 06/10/19 - Pain control, activity, PT as per ortho 2. HTN - Continue amlodipine 10 mg daily; resume chlorthalidone 25 mg for today. continue Losartan 100 mg daily. She will need to have potassium supplemented as outpatient 3. Hyperlipidemia - Continue atorvastatin 20 mg daily 4. MICKI - May use her own CPAP 5. Hypothyroidism - I don't see it listed on her home meds. last TSH 05/06/19 was therapeutic. This can be deferred for outpatient, it would not be useful to check level in the acute setting and post operatively. Defer to PCP 6. Hypokalemia - supplemented by ortho 20 meq tid. recheck today level still low. I did order 40 meq 11 am and repeat BMP at 1 pm. VTE PPX: As per ortho currently on Eliquis 2.5 mg bid. Diet: Regular
[2019-06-13] MEDS ORDERED: Scopolamine PATCH Remove* 1 NOTE MISC PATCH OFF ONE (05:57)
== END 2019-06-12 11:20 | DRG 470 ==
LOC: AA 08:14 → SSU 16:34
PROVIDERS: ADMIT Orthopaedic Surgery Adult Reconstructive Orthopaedic Surgery; ATTEND Orthopaedic Surgery Adult Reconstructive Orthopaedic Surgery
PROC: 0SRD0J9 Replacement of Left Knee Joint with Synthetic Substitute, Cemented, Open Approach (ICD-10-PCS; principal; 2019-06-10 11:00)
DX: M17.0 Bilateral primary osteoarthritis of knee (principal); Z68.41 Body mass index [BMI] 40.0-44.9, adult; E78.00 Pure hypercholesterolemia, unspecified; E89.0 Postprocedural hypothyroidism; M25.462 Effusion, left knee; M21.162 Varus deformity, not elsewhere classified, left knee; I44.7 Left bundle-branch block, unspecified; G47.33 Obstructive sleep apnea (adult) (pediatric); I11.9 Hypertensive heart disease without heart failure; K57.50 Diverticulosis of both small and large intestine without perforation or abscess without bleeding; E66.9 Obesity, unspecified; L84 Corns and callosities; M25.762 Osteophyte, left knee; E78.5 Hyperlipidemia, unspecified; R11.0 Nausea; E87.6 Hypokalemia; I49.3 Ventricular premature depolarization; Z90.710 Acquired absence of both cervix and uterus; Z87.891 Personal history of nicotine dependence; Z83.49 Family history of other endocrine, nutritional and metabolic diseases; Z80.1 Family history of malignant neoplasm of trachea, bronchus and lung; Z72.89 Other problems related to lifestyle
CPT/HCPCS: 36415; 80048; 83735; 85014; 85018; 85049; 88305; 88311; A9270-GY; C1776; G8978-GP-CM; G8979-GP-CI; G8987-GO-CJ; G8988-GO-CI; J0690; J2250; J2704; J3010; J3475; J3490; J8540

== ENCOUNTER 2019-06-12 10:45 | Inpatient (IN) | payer MEDICARE, OTHER ==
[2019-06-12] MEDS ORDERED: Bisacodyl SUPP* 10 MG SUPP PR PRN (11:58)
[2019-06-12] MEDS: Calcium Carbonate CHEW TAB* 500 MG (TUMS) PO PRN (16:04)
[2019-06-12] MEDS: oxyCODONE/Acetamin 5/325 MG* TAB PO PRN ×2 (17:08→21:34)
--- NOTE | 2019-06-12 20:03 | HP ---
ADMISSION HISTORY AND PHYSICAL: DATE OF ADMISSION: 06/12/19 REASON FOR ADMISSION: Left total knee replacement. HISTORY OF PRESENT ILLNESS: Juliana Shepherd is a 68-year-old female. She has a medical history significant for hypertension and hyperlipidemia as well as sleep apnea and obesity. In addition, she had a hysterectomy done this past spring. She has had difficulty with her left knee for many years. The patient originally was going to have her left knee replaced 6 years ago, but her was diagnosed with a glioblastoma. She put off the surgery so she could take care of her , who is now since . The patient had tried and failed conservative treatment including injections into the knee and physical therapy. Her x-rays demonstrated [id number] arthritis. She had sought out consultation with Dr. Felix. She was admitted to [facility] on 06/10/19 and underwent a total knee replacement that day. Postoperatively, she had lot of difficulty with pain and mobilization. She is now being admitted for inpatient rehab so that she might return to independent living. PAST MEDICAL HISTORY: Significant for the aforementioned sleep apnea, hypertension, hypercholesterolemia. PAST SURGICAL HISTORY: As mentioned previously, she had a history of a hysterectomy, which was done 10/31/18. CURRENT MEDICATIONS: Include: 1. Norvasc. 2. Eliquis for DVT prophylaxis. 3. She is on Lipitor. 4. Chlorthalidone. 5. Flonase. 6. Cozaar. 7. Percocet for pain control. ALLERGIES: The patient has no known drug allergies. SOCIAL HISTORY: She is a nonsmoker, nondrinker. She lives alone in a 1-story house. She has no children. REVIEW OF SYSTEMS: The patient reports no current shortness of breath or chest pain. PHYSICAL EXAMINATION VITAL SIGNS: The patient's temperature is 98.4, blood pressure is 130/50, pulse 95, respirations 20. HEENT: Her extraocular movements are intact. Tongue is midline. NECK: Supple. LUNGS: Sound clear to auscultation bilaterally. HEART: Sounds were regular. S1 and S2 were audible. ABDOMEN: Soft and nontender. EXTREMITIES: Her left knee has a wound, which is clean and dry. There is some area of ecchymosis surrounding the knee. NEUROLOGIC: Sensation was intact. Muscle strength in the left leg was about 3/ 5 secondary to pain. She can dorsiflex with about 4/5 strength. Her right leg and upper extremities were 5/5. FUNCTIONAL EXAM: She transfers with minimal assistance. ASSESSMENT: Status post left total knee replacement. PLAN: Integrate her into a comprehensive and therapeutic rehab program with the following goals: 1. Physical Therapy will work with the patient. They are going to work on functional transfer training, ambulation training with a walker. 2. Occupational Therapy will see the patient, work on her activities of daily living including toileting and toilet transfers. 3. Eliquis for DVT prophylaxis. 4. Adequate analgesia. 5. Her bowels will be regulated. She does report she is constipated. 6. ground services instructor will be closely involved to make sure that any services and equipment the patient requires are in place prior to discharge. 7. Family training as appropriate. 8. Home with appropriate services. 9. Advance directives: The patient is a full code. ESTIMATED LENGTH OF STAY: 7 to 10 days. [id number]/CPS #: [id number] MTDD
[2019-06-12] MEDS: Docusate CAP* 100 MG PO SCH (21:33)
[2019-06-12] MEDS: Senna TAB PO SCH (21:33)
[2019-06-12] MEDS: Fluticasone NASAL SPRAY 50MCG* 16 gm SPRAY BTL BOTH NARES SCH (21:34)
[2019-06-12] MEDS: Apixaban* 2.5 MG TAB PO SCH (21:34)
[2019-06-13] MEDS: oxyCODONE/Acetamin 5/325 MG* TAB PO PRN ×4 (07:19→22:03)
[2019-06-13] MEDS: Calcium Carbonate CHEW TAB* 500 MG (TUMS) PO PRN (07:19)
[2019-06-13 07:21] LABS: ABS Basophils 0.1 10^3/ul (0-0.2); ABS Eosinophils 0.1 10^3/ul (0-0.6); ABS Lymphocytes 1.8 10^3/ul (1.0-4.8); ABS Monocytes 1.2 10^3/ul (0-0.8); Eosinophil % 0.8 %; Hematocrit 37 % (35-47); Hemoglobin 12.3 g/dL (12.0-16.0); Mean Corpuscular HGB Conc 33 g/dL (31-36); Mean Corpuscular Hemoglobin 26 pg (27-31); Mean Corpuscular Volume 80 fL (80-97); Mean Platelet Volume 7.9 fL (7.4-10.4); Platelet Count 218 10^3/uL (150-450); Red Blood Count 4.68 10^6 /uL (3.70-4.87); Red Cell Distribution Width 16 % (10-15); White Blood Count 13.2 10^3/uL (3.5-10.8)
[2019-06-13 07:39] LABS: Albumin 3.7 g/dL (3.2-5.2); Albumin/Globulin Ratio 1.2 (1-3); BUN/Creatinine Ratio 23.9 (8-20); Calcium 8.9 mg/dL (8.6-10.3); EGFR Non-African American 134.7 (>60); Potassium 3.3 mmol/L (3.5-5.0); Total Bilirubin 1.2 mg/dL (0.2-1.0); Total Protein 6.7 g/dL (6.4-8.9)
[2019-06-13 08:23] LABS: Hepatitis C Antibody Negative (Negative)
[2019-06-13] MEDS: Apixaban* 2.5 MG TAB PO SCH ×2 (09:14→22:01)
[2019-06-13] MEDS: Chlorthalidone TAB* 50 MG PO SCH (09:14)
[2019-06-13] MEDS: Docusate CAP* 100 MG PO SCH ×2 (09:14→22:01)
[2019-06-13] MEDS: Losartan TAB* 25 MG PO SCH (09:15)
[2019-06-13] MEDS: amLODIPine TAB* 5 MG PO SCH (09:15)
[2019-06-13] MEDS ORDERED: Potassium Chlor TAB* 10 MEQ TAB.ER PO ONE (09:23)
--- NOTE | 2019-06-13 10:55 | PN ---
Progress Note Date of Service: 06/13/19 Note: JULIETA IVEY was visited. Nursing and therapy notes read and reviewed. No chest pain, shortness of breath or abdominal pain. She does feel some mild nausea and sinus pressure. She would like to restart her home dose of vesicare. Denies dysuria or cough. Current Medications: Active Medications Generic Name Dose Route Start Last Admin Trade Name Freq PRN Reason Stop Dose Admin Acetaminophen 650 mg 06/12/19 11:58 Tylenol Tab* PO Q6H PRN FEVER/PAIN Amlodipine Besylate 10 mg 06/13/19 09:00 06/13/19 09:15 Norvasc Tab* PO 10 mg DAILY ALBIN Administration Apixaban 2.5 mg 06/12/19 21:00 06/13/19 09:14 Eliquis* PO 2.5 mg BID ALBIN Administration Atorvastatin Calcium 20 mg 06/13/19 17:00 Lipitor* PO 1700 ALBIN Bisacodyl 10 mg 06/12/19 11:58 Dulcolax Supp* [place] DAILY PRN CONSTIPATION Calcium Carbonate 500 mg 06/12/19 12:21 06/13/19 07:19 Tums* PO 500 mg Q4H PRN Administration DYSPEPSIA Chlorthalidone 25 mg 06/13/19 09:00 06/13/19 09:14 [place] Tab* PO 25 mg DAILY ALBIN Administration Docusate Sodium 100 mg 06/12/19 21:00 06/13/19 09:14 Colace Cap* PO 100 mg BID ALBIN Administration Fluticasone Propionate 2 spray 06/12/19 21:00 06/12/19 21:34 Flonase Nasal [place] 50mcg* BOTH NARES 2 spray 2100 ALBIN Administration Lactulose 30 ml 06/12/19 17:45 06/12/19 21:34 Lactulose* PO 30 ml Q6H PRN Administration CONSTIPATION Losartan Potassium 100 mg 06/13/19 09:00 06/13/19 09:15 Cozaar Tab* PO 100 mg DAILY ALBIN Administration Magnesium Oxide 800 mg 06/13/19 10:00 [place] 400 Tab* PO DAILY ALBIN Oxycodone/Acetaminophen 1 tab 06/12/19 12:09 06/12/19 21:34 Percocet 5/325 Tab* PO 1 tab Q4H PRN Administration PAIN - MODERATE TO SEVERE Oxycodone/Acetaminophen 2 tab 06/12/19 12:15 06/13/19 07:19 Percocet 5/325 Tab* PO 2 tab Q4H PRN Administration PAIN - SEVERE Potassium Chloride 20 meq 06/13/19 14:00 Klor Con Er Tab* PO TID ALBIN Senna 2 tab 06/12/19 21:00 06/12/19 21:33 Senokot Tab* PO 2 tab BEDTIME ALBIN Administration Solifenacin 10 mg 06/13/19 10:00 Vesicare(Nf) PO DAILY ALBIN Vital Signs: Vital Signs Temp Pulse Resp BP Pulse Ox 98.6 F 96 18 151/67 96 06/13/19 06:02 06/13/19 06:02 06/13/19 09:21 06/13/19 06:02 06/13/19 06:02 Lab Results: Laboratory Results - last 24 hr 06/13/19 06/13/19 06/13/19 06:30 06:30 06:30 WBC 13.2 H RBC 4.68 Hgb 12.3 Hct 37 MCV 80 MCH 26 L MCHC 33 RDW 16 H Plt Count 218 MPV 7.9 Neut % (Auto) 75.7 Lymph % (Auto) 14.0 [place] % (Auto) 9.0 Eos % (Auto) 0.8 Baso % (Auto) 0.5 Absolute Neuts (auto) 10.0 H Absolute Lymphs (auto) 1.8 Absolute Monos (auto) 1.2 H Absolute Eos (auto) 0.1 Absolute Basos (auto) 0.1 Absolute Nucleated RBC 0.0 Nucleated RBC % 0.0 Sodium 134 L Potassium 3.3 L Chloride 96 L Carbon Dioxide 28 Anion Gap 10 BUN 11 Creatinine 0.46 L Est GFR ( Amer) 163.0 Est GFR (Non-Af Amer) 134.7 BUN/Creatinine Ratio 23.9 H Glucose 119 H Calcium 8.9 Total Bilirubin 1.20 H AST 15 ALT 11 Alkaline Phosphatase 69 Total Protein 6.7 Albumin 3.7 Globulin 3.0 Albumin/Globulin Ratio 1.2 Hepatitis C Antibody Negative Hepatitis C Ab Index 0.02 Exam: GEN: no acute distress. alert and appropriate. LUNGS: clear to auscultation bilaterally. CV: regular rate and rhythm ABD: + bowel sounds, soft, non-tender, non-distended. Negative Pack's. EXT: No edema. Knee dressing c/d/i. NEURO: BLE motor 5/5 except pain limited testing of left hip and knee. Sensation intact BLE. Assessment/Plan: 68yo woman s/p left total knee replacement secondary to OA #Left TKR: f/u with Dr. Felix. Pain control. PT/OT. #DVT ppx: Eliquis 2.5mg bid #Hypertension: amlodipine, chlorthalidone, losartan #Hypokalemia/Hypomagnesemia: replace orally. recheck K and Mg tomorrow. #Obstructive sleep apnea: CPAP #Hyperlipidemia: lipitor #Leukocytosis: check UA. Not febrile and no other clear sign of infection. Recheck cbc tomorrow. #Hyperbilirubinemia: Not symptomatic. f/u next week. #Overactive bladder: restart vesicare. #Advanced Directives: full code #Estimated LOS: IPOC today. 06/13/19 10:59
[2019-06-13] MEDS: Magnesium Oxide TAB* 400 MG PO SCH (12:36)
--- NOTE | 2019-06-13 12:43 | PMRUTEAM ---
PMRU: Team Meeting Current Status: Nursing: Current Status Skin Deviations [Left Knee] Incision Physical Therapy: Current Status Bed Mobility Assistance Supervision Transfer Mobility Assistance Contact Guard Assist Transfer/Bed Mobility Rolling Walker Recommended Devices Ambulation Assistance Contact Guard Assist Ambulation Assistive Devices Rolling Walker Number of Feet Patient 80 Ambulated Stairs Assistance Min Assist Stairs Recommended Devices Two Rails Number of Stairs 1 Occupational Therapy: Current Status Upper Body Dressing Supervision Lower Body Dressing Supervision Bathing Min assist Toileting Contact Guard Assist,Min Assist Toilet Transfer Contact Guard Assist Shower Transfer Contact Guard Assist Eating Independent Rec Therapy: Current Status Summary of Assessment and Pt. was open to conversation - very cooperative Clinical Impression and engaged throughout. Pt. identified with numerous interests and active involvement in them prior to admission. Pt. states she enjoys her life. Pt. was interested in pet therapy and continued leisure visits. Pt. brought her knitting and books from home to engage in during free time. Pt. asked technical writer to call her conveyor belt operator and inform him of her room change - called and left message as she instructed. Treatment Goals Pt. will engage in leisure activities while on the unit. Treatment Plan Provide recreation therapy and encourage active involvement. Social Work: Current Status Discharge Plan return home with home care svs and support from friends Potential for Family Training n/a pt lives alone Anticipated Discharge Home Destination Discharge With home care svs and support from friends Goals: Physical Therapy: Initial Goals Bed Mobility Assistance Independent Transfer Mobility Assistance Independent Transfer/Bed Mobility Rolling Walker Recommended Devices Ambulation Independent Ambulation Recommended Devices Rolling Walker Ambulation Distance 150 Stairs Assistance Independent Stair Recommended Devices Two Rails Number of Stairs 5 Home Exercise Program Independent Assistance Occupational Therapy: Initial Goals Goals to be Completed in (Days 5-7 ) Upper Body Bathing Routine Modified Independent with Lower Body Bathing Routine Modified Independent with Upper Body Dressing Routine Modified Independent with Lower Body Dressing Routine Modified Independent with Toilet Hygeine and Clothing Modified Independent with Management Routine Toilet Transfer Routine Modified Independent with Tub Transfer Routine Modified Independent with Tub Trasnfer Assistive Devices +TTB Functional Transfers for ADL Modified Independent with Grooming Routine Independent,Modified Independent with Feeding Routine Independent Light Housekeeping Tasks Minimal Contact Assist Social Work: Goals Discharge Plan return home with home care svs and support from friends Potential for Family Training n/a pt lives alone Anticipated Discharge Home Destination Discharge With home care svs and support from friends Care Plan: Care Plan ADL's - Improve/Maintain Start: 06/12/19 14:12 Freq: DAILY Status: Active Target: Protocol: Activity Type Activity Date Activity User E-Sign Co-Sign Detail Recorded Client Recorded Date Recorded By Document 06/12/19 14:12 [id number] 06/12/19 14:12 [id number] 06/12/19 14:12 PMRU Outcome: ADL's/ADL Transfers Orders/Interventions Occupational Therapy Evaluation & Treatment Communication Tool in Patient Room Device Yes Address Deficits Secondary To: L TKA Patient to receive OT 5x/wk for 60-120 Therex min/day Self Care Management Group Therapy UE/LE ADL's with Assist Yes: Martín ADL Transfers with Assist Yes: Martín Toileting: Transfers,Clothing Management Yes: Martín ,Hygeine w/Assist Light Kitchen/Laundry w/Assist Yes: light meal prep Martín Progression Toward Outcome/Goals Progressing Outcome/Goals Met Pt is a 68 y/o female s/p L TKA presenting with increased pain, limited LLE ROM, decreased endurance and balance deficits affecting bathing, toileting and functional transfers. 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 Pt will benefit from skilled OT services to maximize independence and safety. DVT Prophylaxis- Improve/Maintain Start: 06/13/19 02:15 Freq: QSHIFT Status: Active Target: Protocol: Activity Type Activity Date Activity User E-Sign Co-Sign Detail Recorded Client Recorded Date Recorded By Document 06/13/19 02:15 [id number] 06/13/19 02:17 [id number] 06/13/19 02:15 PMRU Outcome: DVT Prophylaxis Outcome/Goals Remains Free of DVT Complies with DVT Prophylaxis /Treatment Demonstrates Knowledge of DVT Prevention/ Treatment TEDS Stockings on Every AM, Off at HS Progression Toward Outcome/Goals Progressing Discharge Planning - Improve/Maintain Start: 06/13/19 02:15 Freq: DAILY Status: Active Target: Protocol: Activity Type Activity Date Activity User E-Sign Co-Sign Detail Recorded Client Recorded Date Recorded By Document 06/13/19 02:15 [id number] 06/13/19 02:17 [id number] 06/13/19 02:15 PMRU Outcome: Discharge Planning Update Patient Family No Outcome/Goals Demonstrates Understanding of Discharge Plan Progression Toward Outcome/Goals Progressing Education-Improve/Maintain Start: 06/13/19 02:15 Freq: QSHIFT Status: Active Target: Protocol: Activity Type Activity Date Activity User E-Sign Co-Sign Detail Recorded Client Recorded Date Recorded By Document 06/13/19 02:15 [id number] 06/13/19 02:17 [id number] 06/13/19 02:15 PMRU Outcome: Education Outcome/Goals Demonstrate/ Verbalize Understanding of Written Discharge Instructions Demonstrates Skills Encourage Questions Progression Toward Outcome/Goals Progressing /GI-Improve/Maintain Start: 06/13/19 02:15 Freq: QSHIFT Status: Active Target: Protocol: Activity Type Activity Date Activity User E-Sign Co-Sign Detail Recorded Client Recorded Date Recorded By Document 06/13/19 02:15 [id number] 06/13/19 02:17 [id number] 06/13/19 02:15 PMRU Outcome: Genitourinary/ Gastrointestinal Genitourinary- Outcome/Goals Maintain/ Achieve Adequate Urinary Output Remain Free of Hospital- Acquired UTI Gastrointestinal-Outcome/Goals Maintain/ Achieve Bowel Regularity in Accordance with Pt's Baseline Prevent Constipation Progression Toward Outcome/Goals - Progressing Progression Toward Outcome/Goals - GI Progressing Medication Administration Start: 06/13/19 02:15 Freq: QSHIFT Status: Active Target: Protocol: Activity Type Activity Date Activity User E-Sign Co-Sign Detail Recorded Client Recorded Date Recorded By Document 06/13/19 02:15 [id number] 06/13/19 02:17 [id number] 06/13/19 02:15 PMRU Outcome: Medication Administration Assess Patient Knowledge/Teach Med No Education for all Meds Outcome/Goals Patient Independent with Medication Administration at Home Demonstrates Understanding Progression Towards Outcome/Goals Progressing Is Patient Going Home on Lovenox? No Medicine Note: Length of Stay: [5 days] Anticipated Discharge Destination: Home Tentative Discharge Date: [06/18/19] Discharged to: [home]
[2019-06-13] MEDS: Potassium Chlor TAB* 20 MEQ TAB.ER PO SCH ×2 (14:51→22:02)
[2019-06-13] MEDS: CMCS: Solifenacin(NF) 5 MG TAB PO SCH (15:01)
[2019-06-13] MEDS: Atorvastatin* 20 MG TAB PO SCH (17:28)
[2019-06-13 17:38] LABS: Urine Appearance Clear; Urine Bacteria Absent (Absent); Urine Bilirubin Negative (Negative); Urine Blood 1+ (Negative); Urine Color Yellow; Urine Glucose Negative (Negative); Urine Ketones Negative (Negative); Urine Nitrite Negative (Negative); Urine Protein Negative (Negative); Urine Red Blood Cell Trace(0-2/hpf) (Absent); Urine Specific Gravity 1.009 (1.010-1.030); Urine Squamous Epithelial Cell Present (Absent); Urine Urobilinogen Negative (Negative); Urine White Blood Cell Trace(0-5/hpf) (Absent)
[2019-06-13] MEDS: Fluticasone NASAL SPRAY 50MCG* 16 gm SPRAY BTL BOTH NARES SCH (22:01)
[2019-06-13] MEDS: Senna TAB PO SCH (22:01)
[2019-06-14 06:45] LABS: Calcium 8.9 mg/dL (8.6-10.3); Magnesium 1.7 mg/dL (1.9-2.7); Potassium 3.6 mmol/L (3.5-5.0)
[2019-06-14 06:50] LABS: BUN/Creatinine Ratio 25.6 (8-20); EGFR African American 176.2 (>60); EGFR Non-African American 145.6 (>60)
[2019-06-14] MEDS: oxyCODONE/Acetamin 5/325 MG* TAB PO PRN ×3 (08:06→22:21)
[2019-06-14] MEDS: Chlorthalidone TAB* 50 MG PO SCH (08:07)
[2019-06-14] MEDS: CMCS: Solifenacin(NF) 5 MG TAB PO SCH (08:08)
[2019-06-14] MEDS: Docusate CAP* 100 MG PO SCH ×2 (08:09→22:21)
[2019-06-14] MEDS: Magnesium Oxide TAB* 400 MG PO SCH (08:10)
[2019-06-14] MEDS: Potassium Chlor TAB* 20 MEQ TAB.ER PO SCH ×3 (08:10→22:21)
[2019-06-14] MEDS: Apixaban* 2.5 MG TAB PO SCH ×2 (08:10→22:21)
[2019-06-14] MEDS: amLODIPine TAB* 5 MG PO SCH (08:11)
[2019-06-14] MEDS: Losartan TAB* 25 MG PO SCH (08:11)
[2019-06-14 09:49] LABS: ABS Eosinophils 0.2 10^3/ul (0-0.6); ABS Monocytes 0.9 10^3/ul (0-0.8); ABS Neutrophils 7.3 10^3/ul (1.5-7.7); Eosinophil % 1.8 %; Hematocrit 37 % (35-47); Hemoglobin 12.5 g/dL (12.0-16.0); Lymphocyte % 19.2 %; Mean Corpuscular HGB Conc 34 g/dL (31-36); Mean Corpuscular Hemoglobin 27 pg (27-31); Mean Corpuscular Volume 81 fL (80-97); Nucleated Red Blood Cells % 0.1; Red Blood Count 4.59 10^6 /uL (3.70-4.87); Red Cell Distribution Width 16 % (10-15); White Blood Count 10.4 10^3/uL (3.5-10.8)
--- NOTE | 2019-06-14 10:05 | PN ---
Progress Note Date of Service: 06/14/19 Note: JULIETA IVEY was visited. Nursing and therapy notes read and reviewed. No chest pain, shortness of breath or abdominal pain. Finds she is less nauseous if takes percocet with food. No vomiting. Loose stools. Current Medications: Active Medications Generic Name Dose Route Start Last Admin Trade Name Freq PRN Reason Stop Dose Admin Acetaminophen 650 mg 06/12/19 11:58 Tylenol Tab* PO Q6H PRN FEVER/PAIN Amlodipine Besylate 10 mg 06/13/19 09:00 06/14/19 08:11 Norvasc Tab* PO 10 mg DAILY ALBIN Administration Apixaban 2.5 mg 06/12/19 21:00 06/14/19 08:10 Eliquis* PO 2.5 mg BID ALBIN Administration Atorvastatin Calcium 20 mg 06/13/19 17:00 06/13/19 17:28 Lipitor* PO 20 mg 1700 ALBIN Administration Bisacodyl 10 mg 06/12/19 11:58 Dulcolax Supp* [place] DAILY PRN CONSTIPATION Calcium Carbonate 500 mg 06/12/19 12:21 06/13/19 07:19 Tums* PO 500 mg Q4H PRN Administration DYSPEPSIA Chlorthalidone 25 mg 06/13/19 09:00 06/14/19 08:07 [place] Tab* PO 25 mg DAILY ALBIN Administration Docusate Sodium 100 mg 06/12/19 21:00 06/14/19 08:09 Colace Cap* PO 100 mg BID ALBIN Administration Fluticasone Propionate 2 spray 06/12/19 21:00 06/13/19 22:01 Flonase Nasal [place] 50mcg* BOTH NARES 2 spray 2100 ALBIN Administration Lactulose 30 ml 06/12/19 17:45 06/12/19 21:34 Lactulose* PO 30 ml Q6H PRN Administration CONSTIPATION Losartan Potassium 100 mg 06/13/19 09:00 06/14/19 08:11 Cozaar Tab* PO 100 mg DAILY ALBIN Administration Magnesium Oxide 800 mg 06/13/19 10:00 06/14/19 08:10 Magox 400 Tab* PO 800 mg DAILY ALBIN Administration Oxycodone/Acetaminophen 1 tab 06/12/19 12:09 06/13/19 17:28 Percocet 5/325 Tab* PO 1 tab Q4H PRN Administration PAIN - MODERATE TO SEVERE Oxycodone/Acetaminophen 2 tab 06/12/19 12:15 06/14/19 08:06 Percocet 5/325 Tab* PO 2 tab Q4H PRN Administration PAIN - SEVERE Potassium Chloride 20 meq 06/13/19 14:00 06/14/19 08:10 Klor Con Er Tab* PO 20 meq TID ALBIN Administration Senna 2 tab 06/12/19 21:00 06/13/19 22:01 Senokot Tab* PO 2 tab BEDTIME ALBIN Administration Solifenacin 10 mg 06/13/19 10:00 06/14/19 08:08 Vesicare(Nf) PO 10 mg DAILY ALBIN Administration Vital Signs: Vital Signs Temp Pulse Resp BP Pulse Ox 98.2 F 84 18 133/55 99 06/14/19 05:28 06/14/19 05:28 06/14/19 08:06 06/14/19 05:28 06/14/19 05:28 Lab Results: Laboratory Results - last 24 hr 06/13/19 06/13/19 06/14/19 06:30 17:00 06:03 WBC RBC Hgb Hct MCV MCH MCHC RDW Neut % (Auto) Lymph % (Auto) [place] % (Auto) Eos % (Auto) Baso % (Auto) Absolute Neuts (auto) Absolute Lymphs (auto) Absolute Monos (auto) Absolute Eos (auto) Absolute Basos (auto) Absolute Nucleated RBC Nucleated RBC % Sodium 133 L Potassium 3.6 Chloride 98 L Carbon Dioxide 25 Anion Gap 10 BUN 11 Creatinine 0.43 L Est GFR ( Amer) 176.2 Est GFR (Non-Af Amer) 145.6 BUN/Creatinine Ratio 25.6 H Glucose 113 H Calcium 8.9 Magnesium 1.7 L Urine Color Yellow Urine Appearance Clear Urine pH 8.0 Ur Specific [place] 1.009 L Urine Protein Negative Urine Ketones Negative Urine Blood 1+ A Urine Nitrate Negative Urine Bilirubin Negative Urine Urobilinogen Negative Ur Leukocyte Esterase Negative Urine WBC (Auto) Trace(0-5/hpf) Urine RBC (Auto) Trace(0-2/hpf) Ur Squamous Epith Cells Present A Urine Bacteria Absent Urine Glucose Negative Hepatitis C Antibody Negative Hepatitis C Ab Index 0.02 06/14/19 06:03 WBC 10.4 RBC 4.59 Hgb 12.5 Hct 37 MCV 81 MCH 27 MCHC 34 RDW 16 H Neut % (Auto) 70.0 Lymph % (Auto) 19.2 [place] % (Auto) 8.7 Eos % (Auto) 1.8 Baso % (Auto) 0.3 Absolute Neuts (auto) 7.3 Absolute Lymphs (auto) 2.0 Absolute Monos (auto) 0.9 H Absolute Eos (auto) 0.2 Absolute Basos (auto) 0.0 Absolute Nucleated RBC 0.0 Nucleated RBC % 0.1 Sodium Potassium Chloride Carbon Dioxide Anion Gap BUN Creatinine Est GFR ( Amer) Est GFR (Non-Af Amer) BUN/Creatinine Ratio Glucose Calcium Magnesium Urine Color Urine Appearance Urine pH Ur Specific [place] Urine Protein Urine Ketones Urine Blood Urine Nitrate Urine Bilirubin Urine Urobilinogen Ur Leukocyte Esterase Urine WBC (Auto) Urine RBC (Auto) Ur Squamous Epith Cells Urine Bacteria Urine Glucose Hepatitis C Antibody Hepatitis C Ab Index Exam: GEN: no acute distress. alert and appropriate. LUNGS: clear to auscultation bilaterally. CV: regular rate and rhythm ABD: + bowel sounds, soft, non-tender, non-distended. Negative Pack's. EXT: No edema. Left knee incision with sutures c/d/i. Minimal proximal erythema. Ecchymosis mostly medially. NEURO: BLE motor 5/5 except pain limited testing of left hip and knee. Sensation intact BLE. Assessment/Plan: 68yo woman s/p left total knee replacement secondary to OA #Left TKR: f/u with Dr. Felix. Pain control. PT/OT. #DVT ppx: Eliquis 2.5mg bid #Hypertension: amlodipine, chlorthalidone, losartan #Hypokalemia/Hypomagnesemia: K is better but Mg still low. continue supplements and recheck on Sunday. MgOx may contribute to diarrhea. #Obstructive sleep apnea: CPAP #Hyperlipidemia: lipitor #Leukocytosis: Resolved. UA not convincing for UTI. Not febrile and no other clear sign of infection. #Hyperbilirubinemia: Not symptomatic. f/u Sunday. #Overactive bladder: vesicare. #Advanced Directives: full code #Estimated LOS: 06/18/19 06/14/19 10:03
[2019-06-14 10:12] LABS: Mean Platelet Volume 8.5 fL (7.4-10.4); Platelet Count 202 10^3/uL (150-450)
[2019-06-14] MEDS: Atorvastatin* 20 MG TAB PO SCH (17:13)
[2019-06-14] MEDS: Senna TAB PO SCH (22:21)
[2019-06-14] MEDS: Fluticasone NASAL SPRAY 50MCG* 16 gm SPRAY BTL BOTH NARES SCH (22:22)
--- NOTE | 2019-06-15 09:10 | PN ---
Progress Note Date of Service: 06/15/19 Note: JULIETA IVEY was visited. Nursing notes read and reviewed. No chest pain, shortness of breath or abdominal pain. Current Medications: Active Medications Generic Name Dose Route Start Last Admin Trade Name Freq PRN Reason Stop Dose Admin Acetaminophen 650 mg 06/12/19 11:58 Tylenol Tab* PO Q6H PRN FEVER/PAIN Amlodipine Besylate 10 mg 06/13/19 09:00 06/14/19 08:11 Norvasc Tab* PO 10 mg DAILY ALBIN Administration Apixaban 2.5 mg 06/12/19 21:00 06/14/19 22:21 Eliquis* PO 2.5 mg BID ALBIN Administration Atorvastatin Calcium 20 mg 06/13/19 17:00 06/14/19 17:13 Lipitor* PO 20 mg 1700 ALBIN Administration Bisacodyl 10 mg 06/12/19 11:58 Dulcolax Supp* [place] DAILY PRN CONSTIPATION Calcium Carbonate 500 mg 06/12/19 12:21 06/13/19 07:19 Tums* PO 500 mg Q4H PRN Administration DYSPEPSIA Chlorthalidone 25 mg 06/13/19 09:00 06/14/19 08:07 [place] Tab* PO 25 mg DAILY ALBIN Administration Docusate Sodium 100 mg 06/12/19 21:00 06/14/19 22:21 Colace Cap* PO 100 mg BID ALBIN Administration Fluticasone Propionate 2 spray 06/12/19 21:00 06/14/19 22:22 Flonase Nasal [place] 50mcg* BOTH NARES 2 spray 2100 ALBIN Administration Lactulose 30 ml 06/12/19 17:45 06/12/19 21:34 Lactulose* PO 30 ml Q6H PRN Administration CONSTIPATION Losartan Potassium 100 mg 06/13/19 09:00 06/14/19 08:11 Cozaar Tab* PO 100 mg DAILY ALBIN Administration Magnesium Oxide 800 mg 06/13/19 10:00 06/14/19 08:10 Magox 400 Tab* PO 800 mg DAILY ALBIN Administration Oxycodone/Acetaminophen 1 tab 06/12/19 12:09 06/14/19 22:21 Percocet 5/325 Tab* PO 1 tab Q4H PRN Administration PAIN - MODERATE TO SEVERE Oxycodone/Acetaminophen 2 tab 06/12/19 12:15 06/14/19 08:06 Percocet 5/325 Tab* PO 2 tab Q4H PRN Administration PAIN - SEVERE Potassium Chloride 20 meq 06/13/19 14:00 06/14/19 22:21 Klor Con Er Tab* PO 20 meq TID ALBIN Administration Senna 2 tab 06/12/19 21:00 06/14/19 22:21 Senokot Tab* PO 2 tab BEDTIME ALBNI Administration Solifenacin 10 mg 06/13/19 10:00 06/14/19 08:08 Vesicare(Nf) PO 10 mg DAILY ALBIN Administration Vital Signs: Vital Signs Temp Pulse Resp BP Pulse Ox 98.2 F 90 24 153/69 97 06/15/19 06:05 06/15/19 06:05 06/15/19 06:05 06/15/19 06:05 06/15/19 06:05 Lab Results: Laboratory Results - last 24 hr 06/14/19 06:03 WBC 10.4 RBC 4.59 Hgb 12.5 Hct 37 MCV 81 MCH 27 MCHC 34 RDW 16 H Plt Count 202 MPV 8.5 Neut % (Auto) 70.0 Lymph % (Auto) 19.2 [place] % (Auto) 8.7 Eos % (Auto) 1.8 Baso % (Auto) 0.3 Absolute Neuts (auto) 7.3 Absolute Lymphs (auto) 2.0 Absolute Monos (auto) 0.9 H Absolute Eos (auto) 0.2 Absolute Basos (auto) 0.0 Absolute Nucleated RBC 0.0 Nucleated RBC % 0.1 Exam: GEN: no acute distress. alert and appropriate. LUNGS: clear to auscultation bilaterally. CV: regular rate and rhythm ABD: + bowel sounds, soft, non-tender, non-distended. Negative Pack's. EXT: No edema. Left knee incision with sutures c/d/i. Minimal proximal erythema. Ecchymosis mostly medially. NEURO: BLE motor 5/5 except pain limited testing of left hip and knee. Sensation intact BLE. Assessment/Plan: 68yo woman s/p left total knee replacement secondary to OA #Left TKR: f/u with Dr. Felix. Pain control. PT/OT. #DVT ppx: Eliquis 2.5mg bid #Hypertension: amlodipine, chlorthalidone, losartan #Hypokalemia/Hypomagnesemia: K is better but Mg still low. continue supplements and recheck on Sunday. MgOx may contribute to diarrhea. #Obstructive sleep apnea: CPAP #Hyperlipidemia: lipitor #Leukocytosis: Resolved. UA not convincing for UTI. Not febrile and no other clear sign of infection. #Hyperbilirubinemia: Not symptomatic. f/u Sunday. #Overactive bladder: vesicare. #Advanced Directives: full code #Estimated LOS: 06/18/19 06/15/19 09:09
[2019-06-15] MEDS: CMCS: Solifenacin(NF) 5 MG TAB PO SCH (09:34)
[2019-06-15] MEDS: amLODIPine TAB* 5 MG PO SCH (09:36)
[2019-06-15] MEDS: Apixaban* 2.5 MG TAB PO SCH ×2 (09:36→20:07)
[2019-06-15] MEDS: Magnesium Oxide TAB* 400 MG PO SCH (09:36)
[2019-06-15] MEDS: Chlorthalidone TAB* 50 MG PO SCH (09:36)
[2019-06-15] MEDS: Losartan TAB* 25 MG PO SCH (09:37)
[2019-06-15] MEDS: Docusate CAP* 100 MG PO SCH ×2 (09:37→20:07)
[2019-06-15] MEDS: Potassium Chlor TAB* 20 MEQ TAB.ER PO SCH ×3 (09:38→20:07)
[2019-06-15] MEDS: oxyCODONE/Acetamin 5/325 MG* TAB PO PRN ×2 (09:41→20:08)
[2019-06-15] MEDS: Atorvastatin* 20 MG TAB PO SCH (16:57)
[2019-06-15] MEDS: Senna TAB PO SCH (20:08)
[2019-06-15] MEDS: Fluticasone NASAL SPRAY 50MCG* 16 gm SPRAY BTL BOTH NARES SCH (20:10)
[2019-06-16 05:45] LABS: Albumin 3.6 g/dL (3.2-5.2); Albumin/Globulin Ratio 1.2 (1-3); BUN/Creatinine Ratio 26.5 (8-20); Calcium 9.2 mg/dL (8.6-10.3); EGFR African American 151.5 (>60); EGFR Non-African American 125.2 (>60); Magnesium 1.7 mg/dL (1.9-2.7); Potassium 3.7 mmol/L (3.5-5.0); Total Bilirubin 0.9 mg/dL (0.2-1.0); Total Protein 6.6 g/dL (6.4-8.9)
[2019-06-16] MEDS: Chlorthalidone TAB* 50 MG PO SCH (09:11)
[2019-06-16] MEDS: Docusate CAP* 100 MG PO SCH ×2 (09:11→21:28)
[2019-06-16] MEDS: Apixaban* 2.5 MG TAB PO SCH ×2 (09:11→21:28)
[2019-06-16] MEDS: amLODIPine TAB* 5 MG PO SCH (09:11)
[2019-06-16] MEDS: Magnesium Oxide TAB* 400 MG PO SCH (09:12)
[2019-06-16] MEDS: Potassium Chlor TAB* 20 MEQ TAB.ER PO SCH ×3 (09:12→21:29)
[2019-06-16] MEDS: CMCS: Solifenacin(NF) 5 MG TAB PO SCH (09:12)
[2019-06-16] MEDS: Losartan TAB* 25 MG PO SCH (09:12)
[2019-06-16] MEDS: oxyCODONE/Acetamin 5/325 MG* TAB PO PRN ×2 (09:21→21:29)
[2019-06-16] MEDS: Acetaminophen TAB* 325 MG PO PRN (13:33)
[2019-06-16] MEDS: Atorvastatin* 20 MG TAB PO SCH (17:43)
--- NOTE | 2019-06-16 18:56 | PN ---
Progress Note Date of Service: 06/16/19 Note: JULIETA IVEY was visited. Therapy notes read and reviewed. She feels confident for Sunday. Her K was 3.7 today and Mg was 1.7. Labs look better Current Medications: Active Medications Generic Name Dose Route Start Last Admin Trade Name Freq PRN Reason Stop Dose Admin Acetaminophen 650 mg 06/12/19 11:58 06/16/19 13:33 Tylenol Tab* PO 650 mg Q6H PRN Administration FEVER/PAIN Amlodipine Besylate 10 mg 06/13/19 09:00 06/16/19 09:11 Norvasc Tab* PO 10 mg DAILY ALBIN Administration Apixaban 2.5 mg 06/12/19 21:00 06/16/19 09:11 Eliquis* PO 2.5 mg BID ALBIN Administration Atorvastatin Calcium 20 mg 06/13/19 17:00 06/16/19 17:43 Lipitor* PO 20 mg 1700 ALBIN Administration Bisacodyl 10 mg 06/12/19 11:58 Dulcolax Supp* [place] DAILY PRN CONSTIPATION Calcium Carbonate 500 mg 06/12/19 12:21 06/13/19 07:19 Tums* PO 500 mg Q4H PRN Administration DYSPEPSIA Chlorthalidone 25 mg 06/13/19 09:00 06/16/19 09:11 [place] Tab* PO 25 mg DAILY ALBIN Administration Docusate Sodium 100 mg 06/12/19 21:00 06/16/19 09:11 Colace Cap* PO 100 mg BID ALBIN Administration Fluticasone Propionate 2 spray 06/12/19 21:00 06/15/19 20:10 Flonase Nasal [place] 50mcg* BOTH NARES 2 spray 2100 ALBIN Administration Lactulose 30 ml 06/12/19 17:45 06/12/19 21:34 Lactulose* PO 30 ml Q6H PRN Administration CONSTIPATION Losartan Potassium 100 mg 06/13/19 09:00 06/16/19 09:12 Cozaar Tab* PO 100 mg DAILY ALBIN Administration Magnesium Oxide 400 mg 06/17/19 09:00 Magox 400 Tab* PO DAILY ALBIN Oxycodone/Acetaminophen 1 tab 06/12/19 12:09 06/15/19 20:08 Percocet 5/325 Tab* PO 1 tab Q4H PRN Administration PAIN - MODERATE TO SEVERE Oxycodone/Acetaminophen 2 tab 06/12/19 12:15 06/16/19 09:21 Percocet 5/325 Tab* PO 2 tab Q4H PRN Administration PAIN - SEVERE Potassium Chloride 20 meq 06/16/19 21:00 Klor Con Er Tab* PO BID ALBIN Senna 2 tab 06/12/19 21:00 06/15/19 20:08 Senokot Tab* PO 2 tab BEDTIME ALBIN Administration Solifenacin 10 mg 06/13/19 10:00 06/16/19 09:12 Vesicare(Nf) PO 10 mg DAILY ALBIN Administration Vital Signs: Vital Signs Temp Pulse Resp BP Pulse Ox 97.8 F 95 20 152/66 98 06/16/19 16:20 06/16/19 16:20 06/16/19 18:40 06/16/19 16:20 06/16/19 18:40 Lab Results: Laboratory Results - last 24 hr 06/16/19 05:09 Sodium 136 Potassium 3.7 Chloride 102 Carbon Dioxide 26 Anion Gap 8 BUN 13 Creatinine 0.49 L Est GFR ( Amer) 151.5 Est GFR (Non-Af Amer) 125.2 BUN/Creatinine Ratio 26.5 H Glucose 117 H Calcium 9.2 Magnesium 1.7 L Total Bilirubin 0.90 AST 10 L ALT 11 Alkaline Phosphatase 63 Total Protein 6.6 Albumin 3.6 Globulin 3.0 Albumin/Globulin Ratio 1.2 Exam: GENERAL: no acute distress. alert and appropriate. LUNGS: clear to auscultation bilaterally. HEART: regular rate and rhythm ABDOMEN: + bowel sounds, soft, non-tender, non-distended. EXTREMITIES: No edema. Left knee incision with sutures c/d/i. Minimal proximal erythema. Ecchymosis mostly medially. NEUROLOGIC: BLE motor 5/5 except pain limited testing of left hip and knee. Sensation intact BLE. Assessment/Plan: 68yo woman s/p left total knee replacement secondary to OA #Left TKR: f/u with Dr. Felix. Pain control. PT/OT. #DVT ppx: Eliquis 2.5mg bid #Hypertension: amlodipine, chlorthalidone, losartan #Hypokalemia/Hypomagnesemia: K is better but Mg still low. continue supplements and recheck on Sunday. MgOx may contribute to diarrhea. #Obstructive sleep apnea: CPAP #Hyperlipidemia: lipitor #Leukocytosis: Resolved. UA not convincing for UTI. Not febrile and no other clear sign of infection. #Hyperbilirubinemia: Not symptomatic. f/u Sunday. #Overactive bladder: vesicare. #Advanced Directives: full code #Estimated LOS: 06/18/19 06/15/19 09:09
[2019-06-16] MEDS: Senna TAB PO SCH (21:28)
[2019-06-16] MEDS: Fluticasone NASAL SPRAY 50MCG* 16 gm SPRAY BTL BOTH NARES SCH (21:29)
[2019-06-17] MEDS: amLODIPine TAB* 5 MG PO SCH (09:26)
[2019-06-17] MEDS: Apixaban* 2.5 MG TAB PO SCH ×2 (09:26→20:59)
[2019-06-17] MEDS: Magnesium Oxide TAB* 400 MG PO SCH (09:27)
[2019-06-17] MEDS: Chlorthalidone TAB* 50 MG PO SCH (09:27)
[2019-06-17] MEDS: Potassium Chlor TAB* 20 MEQ TAB.ER PO SCH (09:27)
[2019-06-17] MEDS: Losartan TAB* 25 MG PO SCH (09:27)
[2019-06-17] MEDS: CMCS: Solifenacin(NF) 5 MG TAB PO SCH (09:28)
[2019-06-17] MEDS: Docusate CAP* 100 MG PO SCH ×2 (09:33→20:59)
[2019-06-17] MEDS: oxyCODONE/Acetamin 5/325 MG* TAB PO PRN (09:36)
--- NOTE | 2019-06-17 12:45 | PMRUTEAM ---
PMRU: Team Meeting Current Status: Nursing: Current Status Skin Deviations [Left Knee] Incision Skin Deviation Description [ cryounit in place Left Knee] Physical Therapy: Current Status Bed Mobility Assistance Independent Transfer Mobility Assistance Independent Transfer/Bed Mobility Rolling Walker Recommended Devices Ambulation Assistance Independent Ambulation Assistive Devices Rolling Walker Number of Feet Patient 1x150', 1x250' Ambulated Stairs Assistance Independent Stairs Recommended Devices Two Rails Number of Stairs 3x5 (15) Curb Independent Curb Assistive Devices Rolling Walker Objective Comments step to pattern ascend/descending stairs Occupational Therapy: Current Status Upper Body Dressing Independent Lower Body Dressing Ind with Adaptive Equip Bathing Ind with Adaptive Equip Toileting Ind with Adaptive Equip,Min Assist Toileting Progress pt has toilet wand at home Toilet Transfer Ind with Adaptive Equip Shower Transfer Ind with Adaptive Equip Eating Independent Rec Therapy: Current Status Summary of Assessment and Recreation Therapy assessment complete and pt. is Clinical Impression aware of services. Pt. has been very active in leisure visits, pet therapy, reading independently and visiting with friends. Treatment Goals Pt. will engage in leisure activities while on the unit. Treatment Plan Provide recreation therapy and encourage active involvement. Social Work: Current Status Discharge Plan return home with home care svs and support from friends Potential for Family Training n/a pt lives alone Anticipated Discharge Home Destination Discharge With home care svs and support from friends Nutrition: Current Status Monitoring full assessment planned 06/19, unless pt d/c'd. She is eating well w/regular diet. Hx morbid obesity, but has no acute nutritional concerns at this time. Goals: Physical Therapy: Initial Goals Bed Mobility Assistance Independent Transfer Mobility Assistance Independent Transfer/Bed Mobility Rolling Walker Recommended Devices Ambulation Independent Ambulation Recommended Devices Rolling Walker Ambulation Distance 150 Stairs Assistance Independent Stair Recommended Devices Two Rails Number of Stairs 5 Home Exercise Program Independent Assistance Physical Therapy: Updated Goals Transfer/Bed Mobility Rolling Walker Recommended Devices Occupational Therapy: Initial Goals Goals to be Completed in (Days 5-7 ) Upper Body Bathing Routine Modified Independent with Lower Body Bathing Routine Modified Independent with Upper Body Dressing Routine Modified Independent with Lower Body Dressing Routine Modified Independent with Toilet Hygeine and Clothing Modified Independent with Management Routine Toilet Transfer Routine Modified Independent with Tub Transfer Routine Modified Independent with Tub Trasnfer Assistive Devices +TTB Functional Transfers for ADL Modified Independent with Grooming Routine Independent,Modified Independent with Feeding Routine Independent Light Housekeeping Tasks Minimal Contact Assist Nutrition: Goals Intervention Goals TBD Social Work: Goals Discharge Plan return home with home care svs and support from friends Potential for Family Training n/a pt lives alone Anticipated Discharge Home Destination Discharge With home care svs and support from friends Care Plan: Care Plan ADL's - Improve/Maintain Start: 06/12/19 14:12 Freq: DAILY Status: Active Target: Protocol: Activity Type Activity Date Activity User E-Sign Co-Sign Detail Recorded Client Recorded Date Recorded By Document 06/16/19 14:40 [id number] 06/16/19 14:40 [id number] 06/16/19 14:40 PMRU Outcome: ADL's/ADL Transfers Orders/Interventions Occupational Therapy Evaluation & Treatment Communication Tool in Patient Room Device Yes Address Deficits Secondary To: L TKA Patient to receive OT 5x/wk for 60-120 Therex min/day Self Care Management Group Therapy UE/LE ADL's with Assist Yes: Martín ADL Transfers with Assist Yes: Martín Toileting: Transfers,Clothing Management Yes: Martín ,Hygeine w/Assist Light Kitchen/Laundry w/Assist Yes: light meal prep Martín Progression Toward Outcome/Goals Progressing Outcome/Goals Met Pt is making progress in endurance, she was able to walk to sink to brush teeth, and to and from shower room using FWW. DVT Prophylaxis- Improve/Maintain Start: 06/13/19 02:15 Freq: QSHIFT Status: Active Target: Protocol: Activity Type Activity Date Activity User E-Sign Co-Sign Detail Recorded Client Recorded Date Recorded By Document 06/16/19 18:34 [id number] [id number] 06/16/19 18:34 [id number] 06/16/19 18:34 PMRU Outcome: DVT Prophylaxis Outcome/Goals Remains Free of DVT Complies with DVT Prophylaxis /Treatment Demonstrates Knowledge of DVT Prevention/ Treatment TEDS Stockings on Every AM, Off at HS Progression Toward Outcome/Goals Progressing Discharge Planning - Improve/Maintain Start: 06/13/19 02:15 Freq: DAILY Status: Active Target: Protocol: Activity Type Activity Date Activity User E-Sign Co-Sign Detail Recorded Client Recorded Date Recorded By Document 06/17/19 00:42 [id number] 06/17/19 00:42 [id number] 06/17/19 00:42 PMRU Outcome: Discharge Planning Update Patient Family No Outcome/Goals Demonstrates Understanding of Discharge Plan Progression Toward Outcome/Goals Progressing Education-Improve/Maintain Start: 06/13/19 02:15 Freq: QSHIFT Status: Active Target: Protocol: Activity Type Activity Date Activity User E-Sign Co-Sign Detail Recorded Client Recorded Date Recorded By Document 06/16/19 18:34 [id number] [facility]-C03 06/16/19 18:34 [id number] 06/16/19 18:34 PMRU Outcome: Education Outcome/Goals Demonstrate/ Verbalize Understanding of Written Discharge Instructions Demonstrates Skills Encourage Questions Progression Toward Outcome/Goals Progressing /GI-Improve/Maintain Start: 06/13/19 02:15 Freq: QSHIFT Status: Active Target: Protocol: Activity Type Activity Date Activity User E-Sign Co-Sign Detail Recorded Client Recorded Date Recorded By Document 06/16/19 18:34 [id number] [facility]-C03 06/16/19 18:34 [id number] 06/16/19 18:34 PMRU Outcome: Genitourinary/ Gastrointestinal Genitourinary- Outcome/Goals Maintain/ Achieve Adequate Urinary Output Remain Free of Hospital- Acquired UTI Gastrointestinal-Outcome/Goals Maintain/ Achieve Bowel Regularity in Accordance with Pt's Baseline Prevent Constipation Progression Toward Outcome/Goals - Progressing Progression Toward Outcome/Goals - GI Progressing Outcome/Goals Met Comment pt up to BR Medication Administration Start: 06/13/19 02:15 Freq: QSHIFT Status: Active Target: Protocol: Activity Type Activity Date Activity User E-Sign Co-Sign Detail Recorded Client Recorded Date Recorded By Document 06/16/19 18:34 [id number] [facility]-C03 06/16/19 18:34 [id number] 06/16/19 18:34 PMRU Outcome: Medication Administration Assess Patient Knowledge/Teach Med No Education for all Meds Outcome/Goals Patient Independent with Medication Administration at Home Demonstrates Understanding Progression Towards Outcome/Goals Progressing Is Patient Going Home on Lovenox? No Mobility- Improve/Maintain Start: 06/13/19 02:15 Freq: DAILY@10 Status: Active Target: Protocol: Activity Type Activity Date Activity User E-Sign Co-Sign Detail Recorded Client Recorded Date Recorded By Document 06/17/19 09:24 [id number] 06/17/19 09:27 [id number] 06/17/19 09:24 PMRU Outcome: Mobility Physical Therapy Evaluation and Yes Treatment Activity OOB with Assistance Yes WBAT Yes: LLE Device Yes: FWW Assistance Yes: CGA Patient to be seen 5x/wk for 60-120 min/ Therex day for: Mobility Training Gait Training Balance Outcome/Goals Maintain/ Achieve Baseline Mobility Status Improve Mobility Status Demonstrates Proper Use of Assistive Devices Free from Complications of Immobility Progression Toward Outcome/Goals Progressing Outcome/Goals Met Improve Mobility Status Demonstrates Proper Use of Assistive Devices Free from Complications of Immobility Bed Mobility Yes: Ind Transfers Yes: Mod I with walker Gait x ft Yes: Mod I with walker x150ft W/C Mobility x ft No Up/Down Stairs Yes: Mod I x 5steps, 2 rails With HEP Yes: Ind Medicine Note: Length of Stay: 1 day Anticipated Discharge Destination: Home Tentative Discharge Date: 06/18/19 Discharged to: Home
[2019-06-17] MEDS: Acetaminophen TAB* 325 MG PO PRN ×2 (14:05→20:59)
--- NOTE | 2019-06-17 17:38 | PN ---
Progress Note Date of Service: 06/17/19 Note: JULIETA IVEY was visited. Therapy notes read and reviewed. She was discussed in interdisciplinary team rounds. She is doing well. For discharge tomorrow. Knee looks clean. Current Medications: Active Medications Generic Name Dose Route Start Last Admin Trade Name Freq PRN Reason Stop Dose Admin Acetaminophen 650 mg 06/12/19 11:58 06/17/19 14:05 Tylenol Tab* PO 650 mg Q6H PRN Administration FEVER/PAIN Amlodipine Besylate 10 mg 06/13/19 09:00 06/17/19 09:26 Norvasc Tab* PO 10 mg DAILY ALBIN Administration Apixaban 2.5 mg 06/12/19 21:00 06/17/19 09:26 Eliquis* PO 2.5 mg BID ALBIN Administration Atorvastatin Calcium 20 mg 06/13/19 17:00 06/16/19 17:43 Lipitor* PO 20 mg 1700 ALBIN Administration Bisacodyl 10 mg 06/12/19 11:58 Dulcolax Supp* FL DAILY PRN CONSTIPATION Calcium Carbonate 500 mg 06/12/19 12:21 06/13/19 07:19 Tums* PO 500 mg Q4H PRN Administration DYSPEPSIA Chlorthalidone 25 mg 06/13/19 09:00 06/17/19 09:27 [place] Tab* PO 25 mg DAILY ALBIN Administration Docusate Sodium 100 mg 06/12/19 21:00 06/17/19 09:33 Colace Cap* PO Not Given BID ALBIN Fluticasone Propionate 2 spray 06/12/19 21:00 06/16/19 21:29 Flonase Nasal [place] 50mcg* BOTH NARES 2 spray 2100 ALBIN Administration Lactulose 30 ml 06/12/19 17:45 06/12/19 21:34 Lactulose* PO 30 ml Q6H PRN Administration CONSTIPATION Losartan Potassium 100 mg 06/13/19 09:00 06/17/19 09:27 Cozaar Tab* PO 100 mg DAILY ALBIN Administration Magnesium Oxide 400 mg 06/17/19 09:00 06/17/19 09:27 Magox 400 Tab* PO 400 mg DAILY ALBIN Administration Oxycodone/Acetaminophen 1 tab 06/12/19 12:09 06/17/19 09:36 Percocet 5/325 Tab* PO 1 tab Q4H PRN Administration PAIN - MODERATE TO SEVERE Oxycodone/Acetaminophen 2 tab 06/12/19 12:15 06/16/19 09:21 Percocet 5/325 Tab* PO 2 tab Q4H PRN Administration PAIN - SEVERE Potassium Chloride 20 meq 06/18/19 09:00 Klor Con Er Tab* PO DAILY ALBIN Senna 2 tab 06/12/19 21:00 06/16/19 21:28 Senokot Tab* PO 2 tab BEDTIME ALBIN Administration Solifenacin 10 mg 06/13/19 10:00 06/17/19 09:28 Vesicare(Nf) PO 10 mg DAILY ALBIN Administration Vital Signs: Vital Signs Temp Pulse Resp BP Pulse Ox 97.9 F 100 18 175/65 98 06/17/19 16:07 06/17/19 16:07 06/17/19 16:07 06/17/19 16:07 06/17/19 16:07 Exam: GENERAL: no acute distress. alert and appropriate. LUNGS: clear to auscultation bilaterally. HEART: regular rate and rhythm ABDOMEN: + bowel sounds, soft, non-tender, non-distended. EXTREMITIES: No edema. Left knee incision with sutures c/d/i. Minimal proximal erythema. Ecchymosis mostly medially. NEUROLOGIC: BLE motor 5/5 except pain limited testing of left hip and knee. Can do a SLR. Sensation intact BLE. Assessment/Plan: 68yo woman s/p left total knee replacement secondary to OA 1. Left TKR: f/u with Dr. Felix. Pain control. PT/OT. 2. DVT ppx: Eliquis 2.5mg bid 3. Hypertension: amlodipine, chlorthalidone, losartan 4. Hypokalemia/Hypomagnesemia: Supplements, check labs in am. K has normalized 5. Obstructive sleep apnea: CPAP 6. Hyperlipidemia: lipitor 7. Overactive bladder: vesicare. 8. Advanced Directives: full code 9. Estimated LOS: d/c 06/18/19 06/17/19 17:39 06/17/19 17:42
[2019-06-17] MEDS: Atorvastatin* 20 MG TAB PO SCH (17:58)
[2019-06-17] MEDS: Fluticasone NASAL SPRAY 50MCG* 16 gm SPRAY BTL BOTH NARES SCH (20:59)
[2019-06-17] MEDS: Senna TAB PO SCH (20:59)
[2019-06-18 06:35] VITALS: BP 154/60
[2019-06-18 07:03] LABS: CO2 Carbon Dioxide 23 mmol/L (22-32); Calcium 9.5 mg/dL (8.6-10.3); Chloride 99 mmol/L (101-111); Sodium 133 mmol/L (135-145)
[2019-06-18 07:09] LABS: ALT 10 U/L (7-52); Albumin/Globulin Ratio 1.3 (1-3); Alkaline Phosphatase 74 U/L (34-104); Blood Urea Nitrogen 15 mg/dL (6-24); EGFR African American 147.6 (>60); Globulin 3.2 g/dL (2-4); Glucose 108 mg/dL (70-100); Total Protein 7.2 g/dL (6.4-8.9)
[2019-06-18 07:38] LABS: Anion Gap 11 mmol/L (2-11)
[2019-06-18] MEDS: amLODIPine TAB* 5 MG PO SCH (08:31)
[2019-06-18] MEDS: Apixaban* 2.5 MG TAB PO SCH (08:35)
[2019-06-18] MEDS: Chlorthalidone TAB* 50 MG PO SCH (08:36)
[2019-06-18] MEDS: Docusate CAP* 100 MG PO SCH (08:37)
[2019-06-18] MEDS: Magnesium Oxide TAB* 400 MG PO SCH (08:37)
[2019-06-18] MEDS: Losartan TAB* 25 MG PO SCH (08:38)
[2019-06-18] MEDS: CMCS: Solifenacin(NF) 5 MG TAB PO SCH (08:41)
[2019-06-18 08:48] LABS: Potassium Redraw 3.3 mmol/L (3.5-5.0)
[2019-06-18] MEDS: oxyCODONE/Acetamin 5/325 MG* TAB PO PRN (08:54)
[2019-06-18] MEDS ORDERED: Potassium Chlor TAB* 20 MEQ TAB.ER PO SCH (09:00)
--- NOTE | 2019-06-18 23:32 | DS ---
CC: Dr. Nicolle Mccarty * DISCHARGE SUMMARY: DATE OF ADMISSION: 06/12/19 DATE OF DISCHARGE: 06/18/19 DISCHARGE DIAGNOSES: 1. Left total knee replacement. 2. Hypertension. 3. Hypokalemia. 4. Sleep apnea. 5. Overactive bladder. HISTORY OF ILLNESS AND HOSPITAL COURSE: For complete history of the events leading up to her rehab stay, please see the history and physical dictated by me on 06/12/19. While on the rehab unit, the patient received adequate analgesia with oral analgesics. She was maintained on Eliquis for DVT prophylaxis. She was noted to be hypokalemic and hypomagnesemic and was given supplements for this. The patient otherwise was stable from a medical point of view. She was seen by Physical Therapy and Occupational Therapy and made good gains from both disciplines. With physical therapy at the time of admission, the patient required contact guard for transfers, she was able to ambulate 100 feet with contact guard. With occupational therapy at the time of admission, the patient was requiring supervision for upper body dressing, min assist for lower body dressing, min assist for bathing, min assist for toileting, and contact guard for toilet transfers. By the time of discharge, the patient was independent in her activities of daily living, independent, ambulating 300 feet with a rolling walker, independent going up and down a flight of stairs. The patient was discharged home on 06/18/19. Discharge diet was regular. DISCHARGE MEDICATIONS: 1. Eliquis 2.5 mg twice daily. 2. Lipitor 20 mg daily. 3. [place] 25 mg daily. 4. Losartan 100 mg daily. 5. Percocet 5/325 one to two tablets every 4 hours as needed. 6. VESIcare 10 mg daily. 7. Potassium 99 mg orally daily. 8. Norvasc 10 mg every morning. SERVICES AFTER DISCHARGE: Through [facility]. She will have home nursing, home physical therapy. Follow up with Dr. Mirna Felix on Sunday, 06/23. CONDITION AT DISCHARGE: The patient was discharged home in stable condition. TIME SPENT: Time for this discharge was approximately 50 minutes, greater than half of that was spent with the patient explaining her post-discharge therapies , followup, and medications. [id number]/[facility] #: [id number] [facility]ENTER[facility]abbie
== END 2019-06-18 15:08 | disposition home health service (06) | DRG 560 ==
LOC: PMRU 11:43
PROVIDERS: ADMIT Physical Medicine & Rehabilitation; ATTEND Physical Medicine & Rehabilitation
PROC: F07Z5ZZ Bed Mobility Treatment (ICD-10-PCS; principal; 2019-06-12)
PROC: F07Z9ZZ Gait Training/Functional Ambulation Treatment (ICD-10-PCS; 2019-06-12)
PROC: F07Z8ZZ Transfer Training Treatment (ICD-10-PCS; 2019-06-12)
PROC: F08Z0ZZ Bathing/Showering Techniques Treatment (ICD-10-PCS; 2019-06-12)
PROC: F08Z1ZZ Dressing Techniques Treatment (ICD-10-PCS; 2019-06-12)
PROC: F08Z3ZZ Feeding/Eating Treatment (ICD-10-PCS; 2019-06-12)
DX: Z47.1 Aftercare following joint replacement surgery (principal); Z68.41 Body mass index [BMI] 40.0-44.9, adult; E83.42 Hypomagnesemia; Z96.652 Presence of left artificial knee joint; I10 Essential (primary) hypertension; E87.6 Hypokalemia; G47.33 Obstructive sleep apnea (adult) (pediatric); N32.81 Overactive bladder; E66.9 Obesity, unspecified; E78.00 Pure hypercholesterolemia, unspecified; D72.829 Elevated white blood cell count, unspecified; E80.6 Other disorders of bilirubin metabolism; Z79.899 Other long term (current) drug therapy
CPT/HCPCS: 36415; 80048; 80053; 81003; 81015; 83735; 85025; 86803; 87086; A9270-GY

== ENCOUNTER 2022-06-27 08:13 | Inpatient (IN) ==
[~2022-06-27 08:13] MED LIST changes: -Acetaminophen TAB* 325 MG PO ONE; +Buffered Lidocaine 1% SYRIN 1 ml INTRADERM ONE; -Buffered Lidocaine 1% SYRIN* 1 ML/SYRINGE INTRADERM ONE; +Bupivacaine-MPF SPINAL 7.5 MG/ML - 2ML AMP ONE; -Dexamethasone TAB* 4 MG PO ONE; -DiMENhydriNATE IV* 50 MG/ML VIAL IV PUSH PRN; +Famotidine IV 10 MG/ML 2 ml VIAL (20 mg) IV ONE; -Famotidine IV* 10 MG/ML 2 ML (20 mg) IV ONE; -Gabapentin CAP(*) 300 MG PO ONE; -HYDROmorphone INJ1* 1 MG/ML SYRINGE IV PRN; -Lactated Ringers 1000 ML Bag* 1,000 ML IV SCH; +Lactated Ringers 1000 ml BAG 1,000 ML IV SCH; +Midazolam 5 mg/5 ml VIAL 1 mg/ml 5 ml VIAL (5 mg) ONE; -Naloxone* 0.4 MG/ML 1 ML VIAL IV PRN; +Ondansetron 4 mg VIAL 2 MG/ML 2 ml VIAL ONE; -Ondansetron ODT TAB* 4 MG PO ONE; -PROCHLORPERAZINE INJ 5 MG/ML 2 ML VIAL IV PRN; +Propofol 10 mg/ml 100 ML BTL 200 ML ONE; -Scopolamine 1.5 mg* PATCH TRANSDERM PRN; -Tranexamic Acid 1,000 MG in NS 0.9% 50 ML* (outpatient use) IV SCH; -celeCOXIB CAP* 200 MG PO ONE; +fentaNYL 100 mcg/2 ml 50 MCG/ML VIAL ONE; -fentaNYL* 50 MCG/ML 2 ML VIAL (100 MCG VIAL) IV PRN; -oxyCODONE TAB* 5 MG TAB PO PRN
[2022-06-27] MEDS ORDERED: Phenylephrine IV 10 MG/ML 1 ml VIAL ONE (08:21)
[2022-06-27] MEDS ORDERED: Acetaminophen IV 1 GM/100ML 100 ML IV ONE (08:28)
[2022-06-27] MEDS ORDERED: ceFAZolin 2 GM PREMIX 2 GM/50 ML BAG ONE (09:04)
[2022-06-27] MEDS ORDERED: Famotidine IV 10 MG/ML 2 ml VIAL (20 mg) ONE (09:22)
[2022-06-27] MEDS ORDERED: fentaNYL 100 mcg/2 ml 50 MCG/ML VIAL ONE ×2 (09:58→14:37)
[2022-06-27] MEDS ORDERED: Midazolam 2 mg/2 ml VIAL 1 mg/ml 2 ml VIAL (2 mg) ONE (09:58)
[2022-06-27] MEDS ORDERED: Glycopyrrolate IV 0.2 MG/ML 1 ML VIAL ONE (09:58)
[2022-06-27] MEDS ORDERED: Lidocaine 1% MPF 5 ML VIAL ONE (10:03)
[2022-06-27] MEDS ORDERED: ROPIVACAINE 5 MG/ML 30 ML BTL (0.5%) ONE ×3 (10:03→15:14)
[2022-06-27] MEDS ORDERED: HYDROmorphone 1 MG/1 ML SYRINGE IV PRN (11:29)
[2022-06-27] MEDS ORDERED: Naloxone 0.4 mg VIAL 0.4 mg/ml 1 ml VIAL IV PRN (11:29)
[2022-06-27] MEDS ORDERED: Sterile Water for Inj 10 ML ONE (12:04)
[2022-06-27] MEDS ORDERED: Ondansetron 4 mg VIAL 2 MG/ML 2 ml VIAL IV PRN (12:13)
[2022-06-27] MEDS ORDERED: Lactulose 30 ml UDC PO PRN (12:13)
[2022-06-27] MEDS ORDERED: Morphine 2 MG/ML SYRINGE IV PRN (12:13)
[2022-06-27] MEDS ORDERED: Ondansetron ODT 4 mg TAB 4 MG TAB PO PRN (12:13)
[2022-06-27] MEDS ORDERED: hydrALAZINE 20 mg/ml 1 ML Vial IV ONE (12:48)
[2022-06-27] MEDS ORDERED: Lactated Ringers 1000 ml BAG 1,000 ML IV SCH (13:00)
[2022-06-27] MEDS ORDERED: Phenylephrine 40 mcg/mL 10mL (400mcg) SYRINGE ONE (13:13)
[2022-06-27] MEDS ORDERED: HYDROmorphone 0.5 MG/0.5 ML SYRINGE ONE (13:17)
[2022-06-27] MEDS ORDERED: Dexamethasone IV 4 MG/ML VIAL 1 ml VIAL ONE (13:18)
[2022-06-27] MEDS: fentaNYL 100 mcg/2 ml 50 MCG/ML VIAL IV PRN ×4 (14:34→15:17)
[2022-06-27] MEDS ORDERED: LoraTADine 10 mg TAB (NF) PO PRN (16:36)
[2022-06-27] MEDS ORDERED: Fluticasone NASAL SPRAY 50MCG 16 gm SPRAY BTL BOTH NARES PRN (16:38)
[2022-06-27] MEDS: ceFAZolin 1 GM ADVAN 1 GM in NS 0.9% 50 ML 50 ML IVPB SCH (20:51)
[2022-06-27] MEDS: Magnesium Hydroxide LIQ 30 ML UDC PO SCH (21:07)
[2022-06-28] MEDS: ceFAZolin 1 GM ADVAN 1 GM in NS 0.9% 50 ML 50 ML IVPB SCH ×2 (04:09→12:37)
[2022-06-28 04:36] LABS: ABS Monocytes 0.9 10^3/ul (0-0.8); ABS Neutrophils 10.4 10^3/ul (1.5-7.7); Eosinophil % 0.1 %; Hematocrit 36 % (35-47); Hemoglobin 11.8 g/dL (12.0-16.0); Lymphocyte % 8.2 %; Mean Corpuscular HGB Conc 33 g/dL (31-36); Mean Corpuscular Hemoglobin 27 pg (27-31); Mean Corpuscular Volume 82 fL (80-97); Mean Platelet Volume 7.7 fL (7.4-10.4); Platelet Count 171 10^3/uL (150-450); Red Blood Count 4.32 10^6 /uL (3.70-4.87); Red Cell Distribution Width 15 % (10-15); White Blood Count 12.4 10^3/uL (3.5-10.8)
[2022-06-28 05:19] LABS: Calcium 8.8 mg/dL (8.6-10.3); Potassium 3.9 mmol/L (3.5-5.0)
[2022-06-28] MEDS ORDERED: ceFAZolin 2 GM PREMIX 2 GM/50 ML BAG IVPB ONE (07:00)
[2022-06-28] MEDS: Vitamin THERAPEUTIC TAB PO SCH (08:06)
[2022-06-28] MEDS: CMCS: Solifenacin 5 mg TAB (NF) PO SCH (08:08)
[2022-06-28] MEDS: Magnesium Hydroxide LIQ 30 ML UDC PO SCH ×2 (08:10→21:32)
[2022-06-28 10:12] LABS: TSH Ultra Thyroid Stim Horm 0.42 mcIU/mL (0.34-5.60)
[2022-06-28 11:44] LABS: Hepatitis C Antibody Negative (Negative)
[2022-06-28] MEDS ORDERED: POTASSIUM 99 MG PO SCH (12:00)
[2022-06-28] MEDS ORDERED: Potassium Chloride LIQUID 20 MEQ/15 ML LIQUID PO ONE (12:26)
[2022-06-28] MEDS: Enoxaparin 40 MG/0.4 ML SYR SUBCUT SCH (21:33)
[2022-06-28] MEDS ORDERED: NS 0.9% 1000 ml BAG 1,000 ML IV SCH (23:55)
[2022-06-29 04:49] LABS: INR 1.1 (0.89-1.11)
[2022-06-29 04:51] LABS: Hematocrit 34 % (35-47); Hemoglobin 11.9 g/dL (12.0-16.0); Mean Corpuscular HGB Conc 35 g/dL (31-36); Mean Corpuscular Hemoglobin 29 pg (27-31); Mean Corpuscular Volume 83 fL (80-97); Red Blood Count 4.12 10^6 /uL (3.70-4.87); Red Cell Distribution Width 15 % (10-15); White Blood Count 14.1 10^3/uL (3.5-10.8)
[2022-06-29 05:13] LABS: Calcium 8.3 mg/dL (8.6-10.3); Magnesium 1.8 mg/dL (1.9-2.7); Phosphorus 2.8 mg/dL (2.5-5.0); Potassium 3.8 mmol/L (3.5-5.0); eGFR CKD-EPI 98.5 (>60)
[2022-06-29] MEDS ORDERED: Potassium Chlor 20 meq TAB.ER PO ONE (05:27)
[2022-06-29] MEDS ORDERED: Magnesium Sulfate 2 gm BAG 2 GM/50 ML BAG IVPB ONE (05:27)
[2022-06-29 05:59] LABS: ABS Eosinophils 0.1 10^3/ul (0-0.6); ABS Lymphocytes 2.1 10^3/ul (1.0-4.8); ABS Monocytes 1.6 10^3/ul (0-0.8); ABS Neutrophils 10.4 10^3/ul (1.5-7.7); Eosinophil % 0.6 %; Lymphocyte % 14.6 %; Platelet Count Platelets clumped. 10^3/uL (150-450)
[2022-06-29] MEDS ORDERED: NS 0.9% 1000 ml BAG 1,000 ML IV SCH (06:00)
[2022-06-29] MEDS ORDERED: ceFAZolin 2 GM PREMIX 2 GM/50 ML BAG IVPB ONE (06:30)
[2022-06-29] MEDS ORDERED: ceFAZolin 1 GM/10 ML flush SYRINGE for pocket flush (cardiology) FLUSH ONE (06:30)
[2022-06-29] MEDS ORDERED: ceFAZolin VIAL 1 GM in NS 0.9% 50 ML 50 ML IVPB ONE (06:30)
[2022-06-29] MEDS ORDERED: ceFAZolin VIAL 2 GM in NS 0.9% 100 ml BAG 100 ML IVPB ONE (06:30)
[2022-06-29] MEDS ORDERED: Lidocaine 1% MPF 5 ML VIAL ONE (06:59)
[2022-06-29] MEDS ORDERED: Midazolam 5 mg/5 ml VIAL 1 mg/ml 5 ml VIAL (5 mg) ONE (07:06)
[2022-06-29] MEDS ORDERED: fentaNYL 100 mcg/2 ml 50 MCG/ML VIAL ONE (07:06)
[2022-06-29] MEDS: Magnesium Hydroxide LIQ 30 ML UDC PO SCH ×2 (09:16→21:06)
[2022-06-29] MEDS: Vitamin THERAPEUTIC TAB PO SCH (09:16)
[2022-06-29] MEDS: CMCS: Solifenacin 5 mg TAB (NF) PO SCH (09:17)
[2022-06-29] MEDS: ceFAZolin 1 GM in Dextrose 1 GM/50 ML BAG IVPB SCH ×2 (09:20→17:01)
[2022-06-29] MEDS: hydrALAZINE 20 mg/ml 1 ML Vial IV IV SLOW PU PRN ×2 (17:14→21:53)
[2022-06-29 18:49] LABS: Hematocrit 38 % (35-47); Hemoglobin 12.9 g/dL (12.0-16.0)
[2022-06-29] MEDS: Enoxaparin 40 MG/0.4 ML SYR SUBCUT SCH (21:06)
[2022-06-30] MEDS: ceFAZolin 1 GM in Dextrose 1 GM/50 ML BAG IVPB SCH (01:08)
[2022-06-30 05:12] LABS: ABS Eosinophils 0.2 10^3/ul (0-0.6); ABS Neutrophils 6.8 10^3/ul (1.5-7.7); Hematocrit 38 % (35-47); Hemoglobin 12.3 g/dL (12.0-16.0); Mean Corpuscular HGB Conc 33 g/dL (31-36); Mean Corpuscular Hemoglobin 27 pg (27-31); Mean Corpuscular Volume 83 fL (80-97); Mean Platelet Volume 7.7 fL (7.4-10.4); Nucleated Red Blood Cells % 0.1; Platelet Count 156 10^3/uL (150-450); Red Blood Count 4.54 10^6 /uL (3.70-4.87); Red Cell Distribution Width 15 % (10-15)
[2022-06-30] MEDS: hydrALAZINE 20 mg/ml 1 ML Vial IV IV SLOW PU PRN (05:12)
[2022-06-30 05:52] LABS: Calcium 8.5 mg/dL (8.6-10.3); Potassium 3.7 mmol/L (3.5-5.0); eGFR CKD-EPI 99.5 (>60)
[2022-06-30] MEDS ORDERED: Potassium Chlor 20 meq TAB.ER PO ONE (05:54)
[2022-06-30] MEDS: Vitamin THERAPEUTIC TAB PO SCH (09:27)
[2022-06-30] MEDS: CMCS: Solifenacin 5 mg TAB (NF) PO SCH (09:28)
[2022-06-30] MEDS: Magnesium Hydroxide LIQ 30 ML UDC PO SCH ×2 (09:34→21:40)
[2022-06-30] MEDS: Lidocaine PATCH 5% PATCH TRANSDERM SCH (12:24)
[2022-07-01] MEDS: Vitamin THERAPEUTIC TAB PO SCH (08:17)
[2022-07-01] MEDS: Magnesium Hydroxide LIQ 30 ML UDC PO SCH (08:17)
[2022-07-01] MEDS: CMCS: Solifenacin 5 mg TAB (NF) PO SCH (08:19)
[2022-07-01] MEDS: Lidocaine PATCH 5% PATCH TRANSDERM SCH (08:20)
[2022-07-02] MEDS: Magnesium Hydroxide LIQ 30 ML UDC PO SCH (00:25)
[2022-07-02] MEDS: CMCS: Solifenacin 5 mg TAB (NF) PO SCH (07:33)
[2022-07-02] MEDS: Vitamin THERAPEUTIC TAB PO SCH (07:34)
[2022-07-02] MEDS: Lidocaine PATCH 5% PATCH TRANSDERM SCH (07:45)
[2022-07-02] MEDS: Magnesium Hydroxide LIQ 30 ML UDC PO PRN (07:46)
[2022-07-03] MEDS: Lidocaine PATCH 5% PATCH TRANSDERM SCH (08:43)
[2022-07-03] MEDS: CMCS: Solifenacin 5 mg TAB (NF) PO SCH (09:11)
[2022-07-03] MEDS: Vitamin THERAPEUTIC TAB PO SCH (09:13)
[2022-07-03] MEDS: Magnesium Hydroxide LIQ 30 ML UDC PO PRN (09:19)
[2022-07-03 11:26] VITALS: BP 129/73
[2022-07-03 12:36] LABS: Rapid COVID-19 Molecular Undetected (Undetected)
== END 2022-07-03 14:08 | DRG 908 ==
LOC: SSU 08:13 → OR 08:13 → ICU 19:21 → SUATTDRO 06-28 15:34 → SSU 06-30 16:30
PROVIDERS: ADMIT Orthopaedic Surgery Adult Reconstructive Orthopaedic Surgery; ATTEND Orthopaedic Surgery Adult Reconstructive Orthopaedic Surgery

== ENCOUNTER 2022-07-03 12:49 | Inpatient (IN) ==
[2022-07-03] MEDS ORDERED: Senna TAB 8.6 mg TAB PO PRN (12:52)
[2022-07-03] MEDS ORDERED: Fluticasone NASAL SPRAY 50MCG 16 gm SPRAY BTL BOTH NARES PRN (13:04)
[2022-07-04 06:05] LABS: Hematocrit 37 % (35-47); Hemoglobin 12.1 g/dL (12.0-16.0); Mean Corpuscular HGB Conc 33 g/dL (31-36); Mean Corpuscular Hemoglobin 27 pg (27-31); Mean Corpuscular Volume 83 fL (80-97); Mean Platelet Volume 7.1 fL (7.4-10.4); Platelet Count 221 10^3/uL (150-450); Red Blood Count 4.47 10^6 /uL (3.70-4.87); Red Cell Distribution Width 15 % (10-15); White Blood Count 9.5 10^3/uL (3.5-10.8)
[2022-07-04 06:06] LABS: Nucleated Red Blood Cells % 0.1
[2022-07-04 06:15] LABS: ABS Basophils 0.1 10^3/ul (0-0.2); ABS Eosinophils 0.4 10^3/ul (0-0.6); ABS Lymphocytes 2.1 10^3/ul (1.0-4.8); ABS Monocytes 0.9 10^3/ul (0-0.8); ABS Neutrophils 5.7 10^3/ul (1.5-7.7); Eosinophil % 4.2 %; Lymphocyte % 22.6 %
[2022-07-04 06:41] LABS: Blood Urea Nitrogen 23 mg/dL (6-24); CO2 Carbon Dioxide 29 mmol/L (22-32); Chloride 96 mmol/L (101-111); Glucose 94 mg/dL (70-100); Sodium 135 mmol/L (135-145)
[2022-07-04 06:42] LABS: ALT 15 U/L (7-52); Albumin 3.6 g/dL (3.2-5.2); Albumin/Globulin Ratio 1.2 (1-3); Alkaline Phosphatase 72 U/L (35-149); Calcium 9.2 mg/dL (8.6-10.3); Globulin 2.9 g/dL (2-4); Total Protein 6.5 g/dL (6.4-8.9); eGFR CKD-EPI 99.5 (>60)
[2022-07-04 06:43] LABS: Anion Gap 10 mmol/L (2-11)
[2022-07-04] MEDS: Solifenacin 5 mg TAB (NF) PO SCH (08:11)
[2022-07-04] MEDS: Vitamin THERAPEUTIC TAB PO SCH (08:11)
[2022-07-04 08:45] LABS: Potassium Redraw 3.9 mmol/L (3.5-5.0)
[2022-07-04] MEDS: Magnesium Hydroxide LIQ 30 ML UDC PO PRN (09:41)
[2022-07-04] MEDS: Lidocaine PATCH 5% PATCH TRANSDERM SCH (11:06)
[2022-07-05] MEDS: Solifenacin 5 mg TAB (NF) PO SCH (07:24)
[2022-07-05] MEDS: Vitamin THERAPEUTIC TAB PO SCH (07:24)
[2022-07-05] MEDS: Lidocaine PATCH 5% PATCH TRANSDERM SCH (11:59)
[2022-07-06] MEDS: Lidocaine PATCH 5% PATCH TRANSDERM SCH (08:12)
[2022-07-06] MEDS: Vitamin THERAPEUTIC TAB PO SCH (08:15)
[2022-07-06] MEDS: Solifenacin 5 mg TAB (NF) PO SCH (08:15)
[2022-07-06] MEDS: Magnesium Hydroxide LIQ 30 ML UDC PO PRN (12:33)
[2022-07-07 06:46] LABS: ABS Basophils 0.1 10^3/ul (0-0.2); ABS Eosinophils 0.2 10^3/ul (0-0.6); ABS Lymphocytes 1.5 10^3/ul (1.0-4.8); ABS Monocytes 0.7 10^3/ul (0-0.8); ABS Neutrophils 5.1 10^3/ul (1.5-7.7); Eosinophil % 2.8 %; Hematocrit 34 % (35-47); Hemoglobin 12.1 g/dL (12.0-16.0); Mean Corpuscular HGB Conc 35 g/dL (31-36); Mean Corpuscular Hemoglobin 29 pg (27-31); Mean Corpuscular Volume 83 fL (80-97); Mean Platelet Volume 7.2 fL (7.4-10.4); Platelet Count 234 10^3/uL (150-450); Red Blood Count 4.15 10^6 /uL (3.70-4.87); Red Cell Distribution Width 15 % (10-15); White Blood Count 7.6 10^3/uL (3.5-10.8)
[2022-07-07 07:07] LABS: Albumin 3.7 g/dL (3.2-5.2); Albumin/Globulin Ratio 1.4 (1-3); Calcium 9.2 mg/dL (8.6-10.3); Globulin 2.6 g/dL (2-4); Total Bilirubin 0.8 mg/dL (0.2-1.0); Total Protein 6.3 g/dL (6.4-8.9); eGFR CKD-EPI 100.5 (>60)
[2022-07-07] MEDS: Lidocaine PATCH 5% PATCH TRANSDERM SCH (09:29)
[2022-07-07] MEDS: Vitamin THERAPEUTIC TAB PO SCH (09:32)
[2022-07-07] MEDS: Solifenacin 5 mg TAB (NF) PO SCH (09:32)
[2022-07-07] MEDS: Magnesium Hydroxide LIQ 30 ML UDC PO PRN (09:37)
[2022-07-08] MEDS: Solifenacin 5 mg TAB (NF) PO SCH (07:41)
[2022-07-08] MEDS: Vitamin THERAPEUTIC TAB PO SCH (07:41)
[2022-07-08] MEDS: Lidocaine PATCH 5% PATCH TRANSDERM SCH (07:43)
[2022-07-08] MEDS: Magnesium Hydroxide LIQ 30 ML UDC PO PRN (09:58)
[2022-07-09] MEDS: Vitamin THERAPEUTIC TAB PO SCH (07:58)
[2022-07-09] MEDS: Solifenacin 5 mg TAB (NF) PO SCH (07:58)
[2022-07-09] MEDS: Lidocaine PATCH 5% PATCH TRANSDERM SCH (08:01)
[2022-07-09] MEDS: Magnesium Hydroxide LIQ 30 ML UDC PO PRN (08:59)
[2022-07-10] MEDS: Solifenacin 5 mg TAB (NF) PO SCH (08:11)
[2022-07-10] MEDS: Vitamin THERAPEUTIC TAB PO SCH (08:11)
[2022-07-10] MEDS: Magnesium Hydroxide LIQ 30 ML UDC PO PRN (08:27)
[2022-07-10] MEDS: Lidocaine PATCH 5% PATCH TRANSDERM SCH (08:29)
[2022-07-11 04:50] VITALS: BP 147/64
[2022-07-11] MEDS: Lidocaine PATCH 5% PATCH TRANSDERM SCH (09:31)
[2022-07-11] MEDS: Vitamin THERAPEUTIC TAB PO SCH (09:32)
[2022-07-11] MEDS: Solifenacin 5 mg TAB (NF) PO SCH (09:32)
== END 2022-07-11 15:00 | disposition home or self-care (01) | DRG 561 ==
LOC: PMRU 14:10
PROVIDERS: ADMIT Physical Medicine & Rehabilitation; ATTEND Physical Medicine & Rehabilitation